=== PATIENT | male | born 1985 | race Caucasian/White ===

== ENCOUNTER 2022-07-21 13:24 | Inpatient (IN) | payer BC ==
[2022-07-21] MEDS ORDERED: NALOXONE HCL 2 MG/2 ML VIAL ONE (13:39)
[2022-07-21 13:45] LABS: Arterial Blood Carboxyhemoglob 0.8 % (0-1.5); Blood Gas Oxyhemoglobin 97.2 % (94-97); Blood O2 Saturation 99.5 % (92-98.5)
[2022-07-21 13:52] LABS: Absolute Lymphocytes (CBC) 1.6 K/uL (0.7-4.9); Hematocrit 41.4 % (39.6-49.0); Lymphocytes % 18.2 % (15.3-44.8); MCV 72.6 fL (80-100); MPV 7.7 fL (7.6-11.3); RBC Red Blood Cell Count 5.71 M/uL (4.33-5.43)
[2022-07-21 13:58] LABS: Protime INR 1.06
[2022-07-21 14:11] LABS: ALT/SGPT 39 U/L (16-61); AST/SGOT 17 U/L (15-37); Albumin 4.2 g/dL (3.4-5.0); Alkaline Phosphatase 100 U/L (45-117); BUN Blood Urea Nitrogen 13 mg/dL (7-18); Bicarbonate 23 mEq/L (21-32); Bilirubin Total 0.2 mg/dL (0.2-1.0); Glomerular Filtration Rate 125 ml/min (=/>90); Glucose Level 113 mg/dL (74-106); Magnesium 1.8 mg/dL (1.6-2.4); NT PRO-BNP 30 pg/mL (<125); Potassium 3.6 mEq/L (3.5-5.1); Protein, Total 8.2 g/dL (6.4-8.2); Sodium Level 139 mEq/L (136-145); Troponin High Sensitivity 3.9 pg/mL (<58.9)
[2022-07-21 14:14] LABS: Bilirubin Direct < 0.1 mg/dL (0-0.2); Bilirubin Indirect, Calculated ND mg/dL (0.2-0.8)
[2022-07-21] MEDS ORDERED: LEVETIRACETAM IV ONE (15:15)
[2022-07-21] MEDS ORDERED: NA CHLORIDE 0.9% IV ONE (15:15)
--- NOTE | 2022-07-21 15:19 | RAD REPORT ---
EXAM DESCRIPTION: CT - Head Brain W/Wo Con - 07/21/2022 2:49 pm CLINICAL HISTORY: Alteration of consciousness/confusion COMPARISON: none TECHNIQUE: Computed axial tomography of the head was obtained. Unenhanced and enhanced images obtain ed. 100 cc Isovue-[address] scans are performed using dose optimization technique as appropriate and may include automated exposure control or mA/KV adjustment according to patient size. FINDINGS: An intracranial bleed is not seen The ventricles are normal in caliber No extra-axial fluid collection is noted. No abnormal enhancement seen Fluid within the sinuses/ mastoids is not seen IMPRESSION: No acute intracranial abnormality is seen. If patient's symptoms persist MRI of the brain would be recommended
--- NOTE | 2022-07-21 15:23 | RAD REPORT ---
EXAM DESCRIPTION: CT - Chest For Pe Angio - 07/21/2022 2:48 pm CLINICAL HISTORY: Chest pain COMPARISON: None. TECHNIQUE: Dynamically enhanced axial 3 mm thick images of the chest were obtained during administra tion of 100 mL Isovue 370 IV contrast. Coronal and oblique reconstruction images were generated and r eviewed. Exam utilizes a protocol for optimal evaluation of pulmonary arterial tree. Maximum intensity projections 3D imaging was utilized All CT scans are performed using dose optimization technique as appropriate and may include automated exposure control or mA/KV adjustment according to patient size. FINDINGS: A pulmonary embolus is not seen. A thoracic aortic aneurysm is not noted. A pleural effusion is not seen. A pericardial effusion is not seen. Mild bilateral ground-glass opacities within the lungs Moderate compression deformity of a lower thoracic vertebral body probably is either chronic or conge nital IMPRESSION: Negative for a pulmonary embolism. Mild ground-glass opacities within the lungs indicative of a mild alveolitis
--- NOTE | 2022-07-21 15:27 | RAD REPORT ---
EXAM DESCRIPTION: Dimitris Single View07/21/2022 1:50 pm CLINICAL HISTORY: Chest pain COMPARISON: none FINDINGS: Poor degree of inspiration Mild bilateral pulmonary opacities Heart is borderline enlarged IMPRESSION: Mild bilateral pulmonary opacities may indicate mild pulmonary edema or pneumonitis
--- NOTE | 2022-07-21 15:27 | RAD REPORT ---
EXAM DESCRIPTION: CT - Abdomen Pelvis W Contrast - 07/21/2022 2:48 pm CLINICAL HISTORY: Abdominal pain COMPARISON: none. TECHNIQUE: Computed axial tomography of the abdomen pelvis was obtained. 100 cc Isovue-300 was admin istered intravenously. Oral contrast was not requested which limits evaluation of bowel and appendix All CT scans are performed using dose optimization technique as appropriate and may include automated exposure control or mA/KV adjustment according to patient size. FINDINGS: The liver, spleen, pancreas, adrenal and kidneys appear unremarkable. There is no evidence of diverticulitis. Multiple metallic foreign bodies pelvis Moderate scoliosis IMPRESSION: No acute abnormality is displayed.
[2022-07-21 16:20] LABS: Specific Gravity 1.021 (1.005-1.030); Urine Bilirubin NEGATIVE (Negative); Urine Blood Negative (Negative); Urine Clarity Clear (Clear); Urine Color Dark-Yellow (Yellow); Urine Glucose NEGATIVE (Negative); Urine Protein NEGATIVE (Negative); Urine Urobilinogen Normal (Normal)
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
[2022-07-21 16:39] LABS: Barbiturates NEGATIVE (NEGATIVE); Benzodiazepines POSITIVE (NEGATIVE); Cocaine NEGATIVE (NEGATIVE); METHAMPHETAM NEGATIVE (NEGATIVE); Methadone NEGATIVE (NEGATIVE); Opiates NEGATIVE (NEGATIVE); Phencyclidine NEGATIVE (NEGATIVE); THC Cannibis NEGATIVE (NEGATIVE)
[2022-07-21] MEDS ORDERED: HYDROCODONE/APAP 5/325 MG TAB PO PRN (18:32)
[2022-07-21] MEDS ORDERED: ACETAMINOPHEN 325 MG TABLET PO PRN (18:32)
[2022-07-21] MEDS ORDERED: ONDANSETRON 4 MG/2 ML VIAL IV PRN (18:38)
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
[2022-07-21] MEDS ORDERED: HYDRALAZINE HCL 20 MG/ML VIAL IV PRN (19:53)
[2022-07-21] MEDS ORDERED: ACETAMINOPHEN 500 MG TAB ONE (21:20)
[2022-07-21 23:52] LABS: Absolute Lymphocytes (CBC) 1.4 K/uL (0.7-4.9); Hematocrit 43.7 % (39.6-49.0); Lymphocytes % 13.9 % (15.3-44.8); MCV 72.5 fL (80-100); MPV 7.6 fL (7.6-11.3); RBC Red Blood Cell Count 6.03 M/uL (4.33-5.43)
[2022-07-22 00:08] LABS: Albumin 4.2 g/dL (3.4-5.0); Bilirubin Total 0.2 mg/dL (0.2-1.0); Magnesium 1.8 mg/dL (1.6-2.4); Phosphorus 2.2 mg/dL (2.5-4.9); Potassium 3.5 mEq/L (3.5-5.1); Protein, Total 8.4 g/dL (6.4-8.2); Thyroid Stimulating Hormone 1.33 uIU/mL (0.358-3.740)
[2022-07-22 04:33] VITALS: BMI 14.8
[2022-07-22] MEDS ORDERED: ENOXAPARIN 40 MG/0.4 ML SQ ONE (05:24)
--- NOTE | 2022-07-22 05:34 | EKG ---
Test Date: 2022-07-21 Test Time: 13:35:33 Loom Checker: HERIBERTO MEASUREMENT RESULTS: Intervals: Rate: 63 SC: 190 QRSD: 100 QT: 392 QTc: 401 [place]: P: 53 SC: 190 QRS: 61 T: 27 INTERPRETIVE STATEMENTS: Normal sinus rhythm Normal ECG No previous ECG available for comparison Electronically Signed On 07-22-22 05:33:24 CDT by Héctor Almaraz
[2022-07-22] MEDS: ENOXAPARIN 40 MG/0.4 ML SQ SCH ×2 (05:48→09:00)
[2022-07-22 05:57] LABS: Arterial Blood Carboxyhemoglob 0.7 % (0-1.5); Blood Gas Oxyhemoglobin 93.8 % (94-97); Blood O2 Saturation 95.8 % (92-98.5)
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
[2022-07-22] MEDS: ASPIRIN 81 MG CHEWABLE TABLET PO SCH (07:38)
[2022-07-22] MEDS ORDERED: ASPIRIN 81 MG CHEWABLE TABLET ONE (07:43)
[2022-07-22] MEDS ORDERED: ACETAMINOPHEN 325 MG TABLET ONE (07:43)
[2022-07-22] MEDS: AMLODIPINE 5 MG TAB PO SCH (09:00)
[2022-07-22 10:24] LABS: Hematocrit 43.8 % (39.6-49.0); Lymphocytes % 26.7 % (15.3-44.8); MCV 72.8 fL (80-100); MPV 7.3 fL (7.6-11.3); RBC Red Blood Cell Count 6.02 M/uL (4.33-5.43)
--- NOTE | 2022-07-22 10:35 | RAD REPORT ---
EXAM DESCRIPTION: CT - Soft Tissue Neck Wo Contr CLINICAL HISTORY: Severe hypoventilation COMPARISON: No comparisons TECHNIQUE: Thin axial CT images of the neck, performed without IV contrast. Multiplanar reformats w ere generated and reviewed. All CT scans are performed using dose optimization technique as appropriate and may include automated exposure control or mA/KV adjustment according to patient size. FINDINGS: Nasopharyngeal tissues are normal in appearance. Fossa Rosenmller are normal. Parapharyngeal fat triangles are symmetric. Tongue base structures are normal. Epiglottis and aryepiglottic folds are normal. Piriform sinuses are well aerated. Upper airway is patent throughout. The vocal cords are normal in appearance. No suspicious adenopathy. Salivary glands are normal in appearance. Small periapical collections along the bilateral maxillary molar root remnants. Upper lung biggs are clear. Included intracranial contents are unremarkable. IMPRESSION: No acute abnormality. No suspicious mucosal mass or adenopathy. Upper airway is patent. Small periapical collections concerning for abscesses along the bilateral maxillary molar root remnan ts.
[2022-07-22 10:38] LABS: Potassium 3.2 mEq/L (3.5-5.1)
--- NOTE | 2022-07-22 12:30 | EKG ---
Test Date: 2022-07-22 Test Time: 02:28:22 Transit Proof Machine Operator: ANGIE MEASUREMENT RESULTS: Intervals: Rate: 101 NC: 154 QRSD: 94 QT: 354 QTc: 459 [place]: P: NC: 154 QRS: 99 T: 142 INTERPRETIVE STATEMENTS: Sinus tachycardia Rightward axis ST & T wave abnormality, consider inferior ischemia Abnormal ECG Compared to ECG 07/21/2022 13:35:33 Right-axis deviation now present ST (T wave) deviation now present Possible ischemia now present Sinus rhythm no longer present Electronically Signed On 07-22-22 12:29:59 CDT by Héctor Almaraz
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
[2022-07-22] MEDS ORDERED: POTASSIUM 25 MEQ EFFERV TAB PO ONE (13:16)
[2022-07-22] MEDS: HYDROCODONE/APAP 7.5/325 MG TAB PO PRN ×2 (13:29→22:34)
[2022-07-22] MEDS: POTASS/SODIUM PHOSPHATE 1 PKT POWD.PACK PO SCH ×3 (13:29→15:38)
--- NOTE | 2022-07-22 18:37 | RAD REPORT ---
EXAM DESCRIPTION: MRI - Brain W/Wo Cont - 07/22/2022 6:00 pm CLINICAL HISTORY: Sleep apnea COMPARISON: head CT July 21, 2022 TECHNIQUE: Axial, sagittal, and coronal magnetic images of the brain were obtained. 20 cc MultiHance administered intravenously FINDINGS: Cerebral microbleed not seen No significant abnormal signal within the brain Pituitary gland normal size The ventricles are normal in caliber. Diffusion-weighted/ ADC mapping sequences do not demonstrate evidence of an acute infarction. No abnormal enhancement within the brain is seen. An extra-axial fluid collection is not noted. Fluid within the sinuses/mastoids is not seen IMPRESSION: No acute intracranial abnormality displayed
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
[2022-07-23 05:35] LABS: Absolute Lymphocytes (CBC) 2.9 K/uL (0.7-4.9); Hematocrit 41.2 % (39.6-49.0); Lymphocytes % 41.2 % (15.3-44.8); MCV 73.6 fL (80-100); MPV 7.3 fL (7.6-11.3)
[2022-07-23 05:45] VITALS: O2SAT 99
[2022-07-23 05:49] LABS: Magnesium 2.1 mg/dL (1.6-2.4); Phosphorus 4.5 mg/dL (2.5-4.9); Potassium 3.7 mEq/L (3.5-5.1)
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
--- NOTE | 2022-07-23 07:31 | ECHO ---
HEIGHT: 5 ft 5 in WEIGHT: 197 lb 0 oz DATE OF STUDY: 07/22/[address]: Héctor Almaraz MD 2-DIMENSIONAL: YES M.MODE: YES DOPPLER: YES COLOR FLOW: YES TDS: YES PORTABLE: YES DEFINITY: NO BUBBLE STUDY: NO DIAGNOSIS: CHEST PAIN CARDIAC HISTORY: CATHERIZATION: NO SURGERY: NO PROSTHETIC VALVE: NO PACEMAKER: NO MEASUREMENTS (cm) DIASTOLIC (NORMALS) SYSTOLIC (NORMALS) IVSd 1.0 (0.6-1.2) LA Diam 2.3 (1.9-4.0) LVEF 29% LVIDd 4.6 (3.5-5.7) LVIDs 4.0 (2.0-3.5) %FS 14% LVPWd 1.1 (0.6-1.2) Ao Diam 2.1 (2.0-3.7) 2 DIMENSIONAL ASSESSMENT: RIGHT ATRIUM: NORMAL LEFT ATRIUM: NORMAL RIGHT VENTRICLE: NORMAL LEFT VENTRICLE: NORMAL TRICUSPID VALVE: NORMAL MITRAL VALVE: NORMAL PULMONIC VALVE: NORMAL AORTIC VALVE: NORMAL PERICARDIAL EFFUSION: NONE AORTIC ROOT: NORMAL LEFT VENTRICULAR WALL MOTION: NORMAL DOPPLER/COLOR FLOW: NORMAL COMMENTS: 1. NORMAL 2D ECHOCARDIOGRAM WITH DOPPLER. 2. NO WALL MOTION ABNORMALITY. 3. NO EFFUSION. TECHNOLOGIST: Noemi BLUE
[2022-07-23] MEDS: ASPIRIN 81 MG CHEWABLE TABLET PO SCH (08:18)
[2022-07-23] MEDS: AMLODIPINE 5 MG TAB PO SCH (08:19)
[2022-07-23] MEDS: ENOXAPARIN 40 MG/0.4 ML SQ SCH (08:19)
[2022-07-23 08:20] VITALS: BP 96/60
[2022-07-23 08:59] VITALS: TEMP 98
[2022-07-23] MEDS ORDERED: [UNRECOGNIZED DRUG - OTHER] PO SCH (09:00)
[2022-07-23] MEDS ORDERED: AMPHETAMINE PO SCH (09:00)
[2022-07-23] MEDS ORDERED: DEXTROAMPHETAMINE PO SCH (09:00)
[2022-07-23] MEDS ORDERED: POTASSIUM CL SA 10 MEQ TAB PO ONE (09:00)
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
--- NOTE | 2022-07-23 16:02 | CON ---
Reason For Consultation: Syncope and chest pain, possible seizure disorder. History Of Present Illness: Patient echocardiogram that was done in hospital here was nor mal. His troponin is normal. His EKG is normal. BNP is normal. Chest x-ray is normal. Past Medical History: As stated above. Also include Allergies: NEGATIVE. Review of Systems: Negative. Social History: Negative. Family History: Noncontributory. Medications: Listed earlier. Physical Examination: Vital Signs: Stable. Blood pressure 159/106, NB/MODL Voice ID: [id number] Report ID: [id number]
== END 2022-07-23 08:45 | disposition left against medical advice (07) | DRG 189 ==
LOC: ER 13:24 → ERHOLD 18:30 → 3RD-ICU 07-22 10:22 → OBSVTOIN 07-22 12:21
PROVIDERS: ADMIT Hospitalist; ATTEND Hospitalist
PROC: 5A09357 Assistance with Respiratory Ventilation, Less than 24 Consecutive Hours, Continuous Positive Airway Pressure (ICD-10-PCS; principal; 2022-07-21)
DX: J96.01 Acute respiratory failure with hypoxia (principal); E87.3 Alkalosis; G47.37 Central sleep apnea in conditions classified elsewhere; I10 Essential (primary) hypertension; H91.8X2 Other specified hearing loss, left ear; M41.9 Scoliosis, unspecified; H57.12 Ocular pain, left eye; D50.9 Iron deficiency anemia, unspecified; G89.29 Other chronic pain; M54.9 Dorsalgia, unspecified; T41.45XA Adverse effect of unspecified anesthetic, initial encounter; R07.89 Other chest pain; R55 Syncope and collapse; R30.0 Dysuria; Z94.5 Skin transplant status; Z53.29 Procedure and treatment not carried out because of patient's decision for other reasons; Z79.899 Other long term (current) drug therapy; Z87.820 Personal history of traumatic brain injury; Z95.818 Presence of other cardiac implants and grafts
CPT/HCPCS: 36415; 70470; 70490; 70553; 71045; 71275; 74177; 80048; 80053; 80061; 80076; 80307; 81003; 82140; 82550; 82805; 83605; 83735; 83880; 84100; 84439; 84443; 84484; 85025; 85610; 87086; 87088; 93005; 93306; 94660; 94760; 96365; 96375; 99291; 99292; A9577; G0378; J1650; J1953; J2310; Q9967

== ENCOUNTER 2022-11-10 12:07 | Observation (INO) | payer OTHER ==
--- OUTSIDE RECORDS SUMMARY | 2022-11-10 12:12 | XMS REPORT | Continuity of Care Document ---
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 rohini ER 500 s t 500 mg 10:51: 00:00 mg [facility]osp[facility] capsule 39 :00 capsule,ex l tended release TAKE 1 CAPSULE BY MOUTH EVERY DAY DIRECTED acetaZOLAMI 2022- No acetazolam [facility] DE (DIAMOX) 07-15 rohini ER 500 s t 500 mg 10:51: 00:00 mg [facility]osp[facility] capsule 39 :00 capsule,ex l tended release TAKE 1 CAPSULE BY MOUTH EVERY DAY DIRECTED acetaZOLAMI 2022- No Take 2 [facility] DE (DIAMOX) 5-17 -[address] 250 MG 00:00: 00:00 STAT and 2 [facility] tablet 00 :00 tablets l 6-8 later. Repeat dose 6-8 later if pain persists. acetaZOLAMI 2022- No Take 2 [facility] DE (DIAMOX) 5-17 05-[address] 250 MG 00:00: 00:00 STAT and 2 [facility] tablet 00 :00 tablets l 6-8 later. Repeat dose 6-8 later if pain persists. famotidine Yes 40mg QD Take 1 [facility] (PEPCID) 40 5-13 tablet (40 st MG tablet 00:00: mg total) [facility] 00 by mouth l daily. famotidine 0 Yes 40mg QD Take 1 [facility] di (PEPCID) 40 5-13 tablet (40 st MG tablet 00:00: mg total) [facility] 00 by mouth l daily. brimonidine 2022- No brimonidin [facility] (ALPHAGAN) 06-30-03 e 0.2 % st 0.2 % 14:42: 00:00 eye drops Hospit [facility] ophthalmic 30 :00 INSTILL 1 l solution DROP IN BOTH EYES THREE TIMES DAILY brimonidine 2022- No brimonidin [facility] (ALPHAGAN) 06-30-03 e 0.2 % st 0.2 % 14:42: 00:00 eye drops [facility] ophthalmic 30 :00 INSTILL 1 l solution DROP IN BOTH EYES THREE TIMES DAILY oxyCODone 2022- No 10mg Q12H 1 tablet [facility] (OxyCONTIN) 06-30-03 ([address] 10 mg 14:42: 00:00 total) [facility]osp[facility] tablet,oral 23 :00 every 12 l only,ext.re (twelve) l.12 hr ER hours. tablet oxyCODone 2022- No 10mg Q12H 1 tablet [facility] (OxyCONTIN) 06-30-03 ([address] 10 mg 14:42: 00:00 total) [facility]osp[facility] tablet,oral 23 :00 every 12 l only,ext.re (twelve) l.12 hr ER hours. tablet sulfamethox 2022- No sulfametho [facility] azole-trime 06-29 xazole 800 s t thoprim 16:03: 00:00 mg-trimeth [facility] (BACTRIM 12 :00 oprim 160 l DS) 800-160 mg tablet mg per TK 1 T PO tablet Q 12 H FOR 10 DAYS UTD sulfamethox 2022- No sulfametho [facility] azole-trime 06-29 xazole 800 s t thoprim 16:03: 00:00 mg-trimeth [facility] (BACTRIM 12 :00 oprim 160 l DS) 800-160 mg tablet mg per TK 1 T PO tablet Q 12 H FOR 10 DAYS UTD moxifloxaci 2022- No moxifloxac [facility] (VIGAMOX) 06-29 in 0.5 % st 0.5 % 16:02: 00:00 eye drops [facility] ophthalmic 51 :00 INT 1 GTT l solution IN OS TID FOR 7 DAYS moxifloxaci 2022- No moxifloxac [facility] (VIGAMOX) 06-29 in 0.5 % st 0.5 % 16:02: 00:00 eye drops [facility] ophthalmic 51 :00 INT 1 GTT l solution IN OS TID FOR 7 DAYS doxycycline 2022- No doxycyclin [facility] (MONODOX) 06-29- e st 100 MG 16:02: 00:00 monohydrat [facility] capsule 19 :00 e 100 mg l capsule TAKE 1 CAPSULE BY MOUTH TWICE DAILY FOR 10 DAYS doxycycline 2022- No doxycyclin [facility] (MONODOX) 06-29- e st 100 MG 16:02: 00:00 monohydrat [facility] capsule 19 :00 e 100 mg l capsule TAKE 1 CAPSULE BY MOUTH TWICE DAILY FOR 10 DAYS dorzolamide 2022- No dorzolamid [facility] (TRUSOPT) 2 06-29- e 2 % eye st % 16:02: 00:00 drops [facility] ophthalmic 15 :00 INSTILL 1 l solution DROP IN LEFT EYE THREE TIMES DAILY DIRECTED dorzolamide 2022- No dorzolamid [facility] (TRUSOPT) 2 06-29- e 2 % eye st % 16:02: 00:00 drops [facility] ophthalmic 15 :00 INSTILL 1 l solution DROP IN LEFT EYE THREE TIMES DAILY DIRECTED cyclopentol 2022- No cyclopento [facility] ate 06-29- late 1 % st (CYCLOGYL) 16:02: 00:00 eye drops H [facility]spita 1 % 09 :00 PUT 1 DROP l ophthalmic LEFT EYE solution TWICE DAILY DIRECTED cyclopentol 2022- No cyclopento [facility] ate 06-29 late 1 % st (CYCLOGYL) 16:02: 00:00 eye drops H [facility] 1 % 09 :00 PUT 1 DROP l ophthalmic LEFT EYE solution TWICE DAILY DIRECTED cefTRIAXone 2022- No ceftriaxon [facility] (ROCEPHIN) 06-[address] 500 mg 16:01: 00:00 solution Hospit [facility] injection 57 :00 for l injection INJECT 500MG IN THE MUSCLE DIRECTED cefTRIAXone 2022- No ceftriaxon [facility] (ROCEPHIN) 06-[address] 500 mg 16:01: 00:00 solution [facility] a injection 57 :00 for l injection INJECT 500MG IN THE MUSCLE DIRECTED cephalexin 2022- No [id number] 500mg Q.5D Take 1 [facility] (KEFLEX) 06-[address] 500 MG 00:00: 04:59 (500 mg [facility]osp[facility] capsule 00 :00 total) by l mouth 2 (two) times a day for 3 days. Start the day before procedure. cephalexin 2022- No [id number] 500mg Q.5D Take 1 [facility] (KEFLEX) 06-[address] 500 MG 00:00: 04:59 (500 mg [facility] capsule 00 :00 total) by l mouth 2 (two) times a day for 3 days. Start the day before procedure. latanoprost 2022- No 1[drp] QD Administer [facility] (XALATAN) 06-[address] 0.005 % 00:00: 00:00 both eyes [facility] ophthal[facility] 00 :00 nightly. l solution latanoprost 2022- No 1[drp] QD Administer [facility] (XALATAN) 06-[address] 0.005 % 00:00: 00:00 both eyes [facility] ophthal[facility] 00 :00 nightly. l solution topiramate Yes 50mg QD Take 1 [facility] (TOPAMAX) 4-26 tablet (50 st 50 MG 00:00: mg total) [facility]osp[facility] tablet 00 by mouth l daily. topiramate 0 Yes 50mg QD Take 1 [facility] di (TOPAMAX) 4-26 tablet (50 st 50 MG 00:00: mg total) [facility]osp[facility] tablet 00 by mouth l daily. brimonidine 2022-0 Yes 1[drp] Q.[id number] Administer [facility] (ALPHAGAN) 4-20 [id number] 1 drop s t 0.2 % 00:00: 3D into the [facility]ospita ophthalmic 00 left eye 3 l solution (three) times a day. timolol 2022-0 Yes 1[drp] Q.5D Administer [facility] (TIMOPTIC) 4-[address] 0.5 % 00:00: into the [facility] ophthalmic 00 left eye 2 l solution (two) times a day. brimonidine 0 Yes 1[drp] Q.[id number] Administer [facility] (ALPHAGAN) 4-20 [id number] 1 drop s t 0.2 % 00:00: 3D into the [facility]osp[facility] ophthalmic 00 left eye 3 l solution (three) times a day. timolol 2022-0 Yes 1[drp] Q.5D Administer [facility] (TIMOPTIC) 4-[address] 0.5 % 00:00: into the [facility] ophthalmic 00 left eye 2 l solution (two) times a day. Suprep 2022- No See Admin [facility] Bowel Prep 06-[address] Kit 00:00: 00:00 ns. [facility]ospita 17.5-3.13-1 00 :00 l .6 gram recon soln Suprep 2022- No See Admin Metho di Bowel Prep 06-[address] Kit 00:00: 00:00 ns. [facility]ospita 17.5-3.13-1 00 :00 l .6 gram recon soln DULoxetine 2022- No 20mg Q.5D Take 1 Meth [facility] (CYMBALTA) 06-[address] 20 MG 00:00: 00:00 (20 mg [facility]osp[facility] capsule 00 :00 total) by l mouth 2 (two) times a day. naloxone 2022-2022- No 1{spray 1 spray by [facility] (NARCAN) 4 06-15 } Left Nare st mg/actuatio 00:00: 00:00 route once Hospita n 00 :00 as needed l spray,non-a for opioid erosol reversal. nasal spray DULoxetine 2022- No 20mg Q.5D Take 1 Meth [facility] (CYMBALTA) 06-[address] 20 MG 00:00: 00:00 (20 mg [facility] capsule 00 :00 total) by l mouth 2 (two) times a day. naloxone 2022- No 1{spray 1 spray by [facility] (NARCAN) 4 06-15 } Left Nare st mg/actuatio 00:00: 00:00 route once Hospita n 00 :00 as needed l spray,non-a for opioid erosol reversal. nasal spray pantoprazol 2022- No TAKE 1 [facility] e 4-17 05-[address] (PROTONIX) 00:00: 00:00 MOUTH Hospi ta 40 MG EC 00 :00 EVERY DAY l tablet 30 MINUTES BEFORE FIRST MEAL pantoprazol 2022-2022- No TAKE 1 [facility] e 4-17 05-[address] (PROTONIX) 00:00: 00:00 MOUTH Hos[facility] ta 40 MG EC 00 :00 EVERY DAY l tablet 30 MINUTES BEFORE FIRST MEAL phenazopyri 2022-0 Yes 200mg QD Take 1 [facility] dine 4-[address] (PYRIDIUM) 00:00: (200 mg [facility] 200 MG 00 total) by l tablet mouth daily. phenazopyri 2022-0 Yes 200mg QD Take 1 [facility] dine 4-[address] (PYRIDIUM) 00:00: (200 mg [facility] 200 MG 00 total) by l tablet mouth daily. HYDROcodone 2022-0 Yes 1{tbl} Q8H Take 1 [facility] -acetaminop 4-[address] hen (NORCO) 00:00: mouth Hospi ta 7.5-325 mg 00 every 8 l per tablet (eight) hours as needed for mild pain. HYDROcodone 2022-0 Yes 1{tbl} Q8H Take 1 [facility] -acetaminop 4-[address] hen (NORCO) 00:00: mouth Hospi ta 7.5-325 mg 00 every 8 l per tablet (eight) hours as needed for mild pain. topiramate 2022-0 2022- No 50mg Q.5D Take 2 Meth [facility] (TOPAMAX) 06-09-[address] 25 MG 00:00: 00:00 (50 mg [facility]osp[facility] tablet 00 :00 total) by l mouth 2 (two) times a day. topiramate 2022-0 3- No 50mg Q.5D Take 2 Meth [facility] (TOPAMAX) 06-09-[address] 25 MG 00:00: 00:00 (50 mg [facility]osp[facility] tablet 00 :00 total) by l mouth 2 (two) times a day. clindamycin 2022-0 2022- No 300mg Q.[id number] Take 1 [facility] (CLEOCIN) 06-09- [id number] capsule st 300 MG 00:00: 00:00 3D (300 mg [facility]osp[facility] capsule 00 :00 total) by l mouth 3 (three) times a day. clindamycin 2022-0 2022- No 300mg Q.[id number] Take 1 [facility] (CLEOCIN) 06-[id number] 300 MG 00:00: 00:00 3D (300 mg [facility] capsule 00 :00 total) by l mouth 3 (three) times a day. prednisoLON 2022-0 2022- No SHAKE [facility] E acetate 05-[address] (PRED 00:00: 00:00 INSTILL 1 Hospit a FORTE) 1 % 00 :00 DROP IN l ophthalmic LEFT EYE suspension FOUR TIMES DAILY prednisoLON 2022-0 2022- No SHAKE [facility] E acetate 05-[address] (PRED 00:00: 00:00 INSTILL 1 Hospit a FORTE) 1 % 00 :00 DROP IN l ophthalmic LEFT EYE suspension FOUR TIMES DAILY oxyCODONE 3-0 Yes 10mg Q12H 10 mg UT ER 3-27 every 12 Health (OxyCONTIN) 15:50: (twelve) 10 MG 12 hr 27 hours. Do tablet not crush, chew, or split. oxyCODONE 3-0 Yes 15mg Q12H 15 mg UT ER 3-27 every 12 Health (OxyCONTIN) 15:50: (twelve) 15 MG 12 hr 27 hours. Do tablet not crush, chew, or split. dorzolamide 3-0 Yes dorzolamid UT (Trusopt) 2 3-27 e 2 % eye [facility] % 15:50: drops ophthalmic 27 INSTILL 1 solution DROP IN LEFT EYE THREE TIMES DAILY DIRECTED meloxicam 2023-0 Yes 15mg QD Take 15 mg UT (Mobic) 15 3-27 by mouth 1 [facility] MG tablet 15:50: (one) time 27 each day. methocarbam 2023-0 Yes 750mg Q6H Take 750 U T ol 3-27 mg by Health (Robaxin) 15:50: mouth 750 MG 27 every 6 tablet (six) hours. metoprolol 3-0 Yes 25mg Q.5D Take 25 mg U T succinate 3-27 by mouth Health XL 15:50: in the (Toprol-XL) 27 morning 25 MG 24 hr and 25 mg tablet in the evening. amphetamine 3-0 Yes 30mg QD Take 30 mg UT -dextroamph 3-27 by mouth 1 He alth etamine 15:50: (one) time (Adderall) 27 each day. 30 MG tablet pregabalin 2022-0 Yes 100mg Q.5D Take 100 UT (Lyrica) 3-27 mg by Health 100 MG 15:50: mouth in capsule 27 the morning and 100 mg in the evening. prednisoLON 2022-0 Yes prednisolo UT E acetate 3-27 ne acetate [facility]al th (Pred-Forte 15:50: 1 % eye ) 1 % 27 drops,susp ophthalmic ension suspension SHAKE LIQUID AND INSTILL 1 DROP IN LEFT EYE EVERY 2 HOURS DIRECTED gabapentin 3-0 Yes 300mg Q.[id number] Take 300 UT (Neurontin) 3-27 [id number] mg by H ealth 300 MG 15:50: 3D mouth in capsule 27 the morning and 300 mg at noon and 300 mg in the evening. oxyCODONE 2023-0 Yes 10mg Q12H 10 mg UT ER 3-27 every 12 Health (OxyCONTIN) 15:50: (twelve) 10 MG 12 hr 27 hours. Do tablet not crush, chew, or split. oxyCODONE 2023-0 Yes 15mg Q12H 15 mg UT ER 3-27 every 12 Health (OxyCONTIN) 15:50: (twelve) 15 MG 12 hr 27 hours. Do tablet not crush, chew, or split. dorzolamide 2022-0 Yes dorzolamid UT (Trusopt) 2 3-27 e 2 % eye [facility] % 15:50: drops ophthalmic 27 INSTILL 1 solution DROP IN LEFT EYE THREE TIMES DAILY DIRECTED meloxicam 2022-0 Yes 15mg QD Take 15 mg UT (Mobic) 15 3-27 by mouth 1 [facility]a l[facility] MG tablet 15:50: (one) time 27 each day. methocarbam 2022-0 Yes 750mg Q6H Take 750 U T ol 3-27 mg by Health (Robaxin) 15:50: mouth 750 MG 27 every 6 tablet (six) hours. metoprolol 2022-0 Yes 25mg Q.5D Take 25 mg U T succinate 3-27 by mouth Health XL 15:50: in the (Toprol-XL) 27 morning 25 MG 24 hr and 25 mg tablet in the evening. amphetamine 2022-0 Yes 30mg QD Take 30 mg UT -dextroamph 3 by mouth 1 He alth etamine 15:50: (one) time (Adderall) 27 each day. 30 MG tablet pregabalin 2022-0 Yes 100mg Q.5D Take 100 UT (Lyrica) 3-27 mg by Health 100 MG 15:50: mouth in capsule 27 the morning and 100 mg in the evening. prednisoLON 2022-0 Yes prednisolo UT E acetate 3-27 ne acetate [facility]al th (Pred-Forte 15:50: 1 % eye ) 1 % 27 drops,susp ophthalmic ension suspension SHAKE LIQUID AND INSTILL 1 DROP IN LEFT EYE EVERY 2 HOURS DIRECTED gabapentin 2022-0 Yes 300mg Q.[id number] Take 300 UT (Neurontin) 3-27 [id number] mg by H ealth 300 MG 15:50: 3D mouth in capsule 27 the morning and 300 mg at noon and 300 mg in the evening. BinaxNOW 2022-0 2022- No TEST [facility] COVID-19 Ag 05-[address] Self Test 00:00: 00:00 TODAY Hospit a kit 00 :00 l BinaxNOW 2022-0 2022- No TEST [facility] di COVID-19 Ag 05-[address] Self Test 00:00: 00:00 TODAY Hospit a kit 00 :00 l methylpheni 2022-2022- No 40mg Take 1 [facility] date LA 05-[address] (RITALIN 00:00: 00:00 (40 mg Hospit a [place]) 40 MG 00 :00 total) by l 24 hr mouth. capsule methylpheni 0 2022- No 40mg Take 1 [facility] date [place] 05-[address] (RITALIN 00:00: 00:00 (40 mg Hospit a [place]) 40 MG 00 :00 total) by l 24 hr mouth. capsule levoFLOXaci 2022- No 500mg QD Take 1 [facility] n 05-21- tablet st (LEVAQUIN) 00:00: 00:00 (500 mg [facility] 500 MG 00 :00 total) by l tablet mouth daily. methylpheni 2022- No Metho di date LA 05-21 st (RITALIN 00:00: 00:00 Hospita [place]) 40 MG 00 :00 l 24 hr capsule levoFLOXaci 2022-0 2022- No 500mg QD Take 1 [facility] n 05-21- tablet st (LEVAQUIN) 00:00: 00:00 (500 mg [facility] 500 MG 00 :00 total) by l tablet mouth daily. methylpheni 2022- No Metho di date LA 05-21 st (RITALIN 00:00: 00:00 [facility]ospita [place]) 40 MG 00 :00 l 24 hr capsule cyclopentol 2022-0 Yes 1[drp] Q.5D Administer [facility] ate 3-[address] (CYCLOGYL) 00:00: into the [facility] 1 % 00 left eye 2 l ophthalmic (two) solution times a day. cyclopentol 2022-0 Yes 1[drp] Q.5D Administer [facility] ate 3-[address] (CYCLOGYL) 00:00: into the [facility] 1 % 00 left eye 2 l ophthalmic (two) solution times a day. traMADol 2022-0 202- No 50mg Q6H Take 50 mg UT (Ultram) 50 3-15 03-15 by mouth [facility]a l[facility] MG tablet 11:20: 00:00 every 6 46 :00 (six) hours. dorzolamide Yes 1[drp] Q.5D Administer [facility] (TRUSOPT) 2 3-[address] % 00:00: into the [facility]osp[facility] ophthalmic 00 left eye 2 l solution (two) times a day. traMADol 0 Yes [id number] 50mg Q6H Take 1 UT (Ultram) 50 3-15 tablet (50 He alth MG tablet 00:00: mg total) 00 by mouth every 6 (six) hours if needed for severe pain. traMADol 0 Yes [id number] 50mg Q6H Take 1 UT (Ultram) 50 3-15 tablet (50 He alth MG tablet 00:00: mg total) 00 by mouth every 6 (six) hours if needed for severe pain. traMADol 0 Yes [id number] 50mg Q6H Take 1 UT (Ultram) 50 3-15 tablet (50 He alth MG tablet 00:00: mg total) 00 by mouth every 6 (six) hours if needed for severe pain. traMADol Yes [id number] 50mg Q6H Take 1 UT (Ultram) 50 3-15 tablet (50 He alth MG tablet 00:00: mg total) 00 by mouth every 6 (six) hours if needed for severe pain. traMADol 0 Yes [id number] 50mg Q6H Take 1 UT (Ultram) 50 3-15 tablet (50 He alth MG tablet 00:00: mg total) 00 by mouth every 6 (six) hours if needed for severe pain. dorzolamide Yes 1[drp] Q.5D Administer [facility] (TRUSOPT) 2 3-[address] % 00:00: into the [facility] ophthalmic 00 left eye 2 l solution (two) times a day. acetaZOLAMI 2022- No 250mg QD Take 1 [facility] DE (DIAMOX) 05-[address] 250 MG 00:00: 00:00 (250 mg [facility]osp[facility] tablet 00 :00 total) by l mouth daily. naproxen 0 2022- No 500mg Q.5D Take 1 [facility] di (NAPROSYN) 05-[address] 500 MG 00:00: 00:00 (500 mg [facility]osp[facility] tablet 00 :00 total) by l mouth 2 (two) times a day as needed for mild pain. loratadine 2022- No 10mg QD Take 1 [facility] (CLARITIN) 05-09 tablet (10 st 10 mg 00:00: 00:00 mg total) Hospit a tablet 00 :00 by mouth l daily. acetaZOLAMI 2022- No 250mg QD Take 1 [facility] DE (DIAMOX) 05-[address] 250 MG 00:00: 00:00 (250 mg [facility]osp[facility] tablet 00 :00 total) by l mouth daily. naproxen 2022- No 500mg Q.5D Take 1 [facility] di (NAPROSYN) 05-[address] 500 MG 00:00: 00:00 (500 mg [facility]osp[facility] tablet 00 :00 total) by l mouth 2 (two) times a day as needed for mild pain. loratadine 2022- No 10mg QD Take 1 [facility] (CLARITIN) 05-09 tablet (10 st 10 mg 00:00: 00:00 mg total) Hospit [facility] tablet 00 :00 by mouth l daily. pregabalin 2022- No 50mg Q8H Take 1 Meth [facility] (LYRICA) 50 05-[address] MG capsule 00:00: 00:00 (50 mg [facility] 00 :00 total) by l mouth every 8 (eight) hours. pregabalin 2022-2022- No 50mg Q8H Take 1 Meth [facility] (LYRICA) 50 05-[address] MG capsule 00:00: 00:00 (50 mg [facility] 00 :00 total) by l mouth every 8 (eight) hours. ergocalcife 2022- No [id number] Q1W Take 1 M ethodi rol 05-[address] (VITAMIN 00:00: 00:00 (50,000 Hospi ta D2) 50,000 00 :00 Units l unit total) by capsule mouth every 7 days. FeroSuL 325 2022- No 1{tbl} QD Take 1 M ethodi mg (65 mg 3-12 05-[address] iron) 00:00: 00:00 (325 mg [facility]ospita tablet 00 :00 total) by l mouth daily. folic acid 2022- No 1mg QD Take 1 [facility] (FOLVITE) 1 05-09 tablet (1 st MG tablet 00:00: 00:00 mg total) Ho spita 00 :00 by mouth l daily. nortriptyli 2022-0 2022- No 10mg QD Take 1 Met [facility] ne 05-[address] (PAMELOR) 00:00: 00:00 (10 mg Hospi ta 10 MG 00 :00 total) by l capsule mouth nightly. ergocalcife 2022- No [id number] Q1W Take 1 M ethodi rol 05-[address] (VITAMIN 00:00: 00:00 (50,000 Hospi ta D2) 50,000 00 :00 Units l unit total) by capsule mouth every 7 days. FeroSuL 325 2022- No 1{tbl} QD Take 1 M ethodi mg (65 mg 05-[address] iron) 00:00: 00:00 (325 mg [facility]ospita tablet 00 :00 total) by l mouth daily. folic acid 2022- No 1mg QD Take 1 Meth [facility] (FOLVITE) 1 05-09 tablet (1 st MG tablet 00:00: 00:00 mg total) Ho spita 00 :00 by mouth l daily. nortriptyli 2022- No 10mg QD Take 1 [facility] ne 05-[address] (PAMELOR) 00:00: 00:00 (10 mg Hospi ta 10 MG 00 :00 total) by l capsule mouth nightly. latanoprost 2022-2022- No 1[drp] QD Administer [facility] (XALATAN) 05-[address] 0.005 % 00:00: 00:00 both eyes [facility] ophthalmic 00 :00 nightly. l solution latanoprost 2022-0 2022- No 1[drp] QD Administer [facility] (XALATAN) 05-[address] 0.005 % 00:00: 00:00 both eyes [facility] ophthalmic 00 :00 nightly. l solution dorzolamide 3-0 Yes dorzolamid UT (Trusopt) 2 3-06 e 2 % eye [facility] % 14:09: drops ophthalmic 45 INSTILL 1 solution DROP IN LEFT EYE THREE TIMES DAILY DIRECTED meloxicam 2023-0 Yes 15mg QD Take 15 mg UT (Mobic) 15 3-06 by mouth 1 [facility] MG tablet 14:09: (one) time 45 each day. methocarbam 2023-0 Yes 750mg Q6H Take 750 U T ol 3-06 mg by Health (Robaxin) 14:09: mouth 750 MG 45 every 6 tablet (six) hours. metoprolol 2023-0 Yes 25mg Q.5D Take 25 mg U T succinate 3-06 by mouth Health XL 14:09: in the (Toprol-XL) 45 morning 25 MG 24 hr and 25 mg tablet in the evening. traMADol 3-0 Yes 50mg Q6H Take 50 mg UT (Ultram) 50 3-06 by mouth [facility]al th MG tablet 14:09: every 6 45 (six) hours. amphetamine 2023-0 Yes 30mg QD Take 30 mg UT -dextroamph 3-06 by mouth 1 He alth etamine 14:09: (one) time (Adderall) 45 each day. 30 MG tablet pregabalin 3-0 Yes 100mg Q.5D Take 100 UT (Lyrica) 3-06 mg by Health 100 MG 14:09: mouth in capsule 45 the morning and 100 mg in the evening. prednisoLON 3-0 Yes prednisolo UT E acetate 3-06 ne acetate [facility]al [facility] (Pred-Forte 14:09: 1 % eye ) 1 % 45 drops,susp ophthalmic ension suspension SHAKE LIQUID AND INSTILL 1 DROP IN LEFT EYE EVERY 2 HOURS DIRECTED gabapentin 2023-0 Yes 300mg Q.[id number] Take 300 UT (Neurontin) 3-06 [id number] mg by H ealth 300 MG 14:09: 3D mouth in capsule 45 the morning and 300 mg at noon and 300 mg in the evening. oxyCODONE 3-0 Yes 10mg Q12H 10 mg UT ER 3-06 every 12 Health (OxyCONTIN) 14:09: (twelve) 10 MG 12 hr 45 hours. Do tablet not crush, chew, or split. oxyCODONE 2023-0 Yes 15mg Q12H 15 mg UT ER 3-06 every 12 [facility] (OxyCONTIN) 14:09: (twelve) 15 MG 12 hr 45 hours. Do tablet not crush, chew, or split. dorzolamide 2023-0 Yes dorzolamid UT (Trusopt) 2 3-06 e 2 % eye [facility] % 14:09: drops ophthalmic 45 INSTILL 1 solution DROP IN LEFT EYE THREE TIMES DAILY DIRECTED meloxicam 2023-0 Yes 15mg QD Take 15 mg UT (Mobic) 15 3-06 by mouth 1 [facility] l[facility] MG tablet 14:09: (one) time 45 each day. methocarbam 2023-0 Yes 750mg Q6H Take 750 U T ol 3-06 mg by Health (Robaxin) 14:09: mouth 750 MG 45 every 6 tablet (six) hours. metoprolol 2023-0 Yes 25mg Q.5D Take 25 mg U T succinate 3-06 by mouth Health XL 14:09: in the (Toprol-XL) 45 morning 25 MG 24 hr and 25 mg tablet in the evening. amphetamine 2023-0 Yes 30mg QD Take 30 mg UT -dextroamph 3-06 by mouth 1 He alth etamine 14:09: (one) time (Adderall) 45 each day. 30 MG tablet pregabalin 2023-0 Yes 100mg Q.5D Take 100 UT (Lyrica) 3-06 mg by Health 100 MG 14:09: mouth in capsule 45 the morning and 100 mg in the evening. prednisoLON 2023-0 Yes prednisolo UT E acetate 3-06 ne acetate [facility]al [facility] (Pred-Forte 14:09: 1 % eye ) 1 % 45 drops,susp ophthalmic ension suspension SHAKE LIQUID AND INSTILL 1 DROP IN LEFT EYE EVERY 2 HOURS DIRECTED gabapentin 2023-0 Yes 300mg Q.[id number] Take 300 UT (Neurontin) 3-06 [id number] mg by H ealth 300 MG 14:09: 3D mouth in capsule 45 the morning and 300 mg at noon and 300 mg in the evening. oxyCODONE 2023-0 Yes 10mg Q12H 10 mg UT ER 3-06 every 12 Health (OxyCONTIN) 14:09: (twelve) 10 MG 12 hr 45 hours. Do tablet not crush, chew, or split. oxyCODONE 2023-0 Yes 15mg Q12H 15 mg UT ER 3-06 every 12 Health (OxyCONTIN) 14:09: (twelve) 15 MG 12 hr 45 hours. Do tablet not crush, chew, or split. pregabalin 2023-0 Yes 100mg Q.5D Take 100 UT (Lyrica) 3-06 mg by Health 100 MG 13:20: mouth in capsule 05 the morning and 100 mg in the evening. prednisoLON 3-0 Yes prednisolo UT E acetate 3-06 ne acetate [facility]al [facility] (Pred-Forte 13:20: 1 % eye ) 1 % 05 drops,susp ophthalmic ension suspension SHAKE LIQUID AND INSTILL 1 DROP IN LEFT EYE EVERY 2 HOURS DIRECTED gabapentin 3-0 Yes 300mg Q.[id number] Take 300 UT (Neurontin) 3-06 [id number] mg by H ealth 300 MG 13:20: 3D mouth in capsule 05 the morning and 300 mg at noon and 300 mg in the evening. oxyCODONE 3-0 Yes 10mg Q12H 10 mg UT ER 3-06 every 12 Health (OxyCONTIN) 13:20: (twelve) 10 MG 12 hr 05 hours. Do tablet not crush, chew, or split. oxyCODONE 2023-0 Yes 15mg Q12H 15 mg UT ER 3-06 every 12 Health (OxyCONTIN) 13:20: (twelve) 15 MG 12 hr 05 hours. Do tablet not crush, chew, or split. dorzolamide 3-0 Yes dorzolamid UT (Trusopt) 2 3-06 e 2 % eye [facility] % 13:14: drops ophthalmic 55 INSTILL 1 solution DROP IN LEFT EYE THREE TIMES DAILY DIRECTED meloxicam 2023-0 Yes 15mg QD Take 15 mg UT (Mobic) 15 3-06 by mouth 1 [facility]a l[facility] MG tablet 13:14: (one) time 55 each day. methocarbam 2023-0 Yes 750mg Q6H Take 750 U T ol 3-06 mg by Health (Robaxin) 13:14: mouth 750 MG 55 every 6 tablet (six) hours. metoprolol 2023-0 Yes 25mg Q.5D Take 25 mg U T succinate 3-06 by mouth Health XL 13:14: in the (Toprol-XL) 55 morning 25 MG 24 hr and 25 mg tablet in the evening. traMADol 2022-0 Yes 50mg Q6H Take 50 mg UT (Ultram) 50 3-06 by mouth [facility]al th MG tablet 13:14: every 6 55 (six) hours. amphetamine 2022-0 Yes 30mg QD Take 30 mg UT -dextroamph 3-06 by mouth 1 [facility] alth etamine 13:14: (one) time (Adderall) 55 each day. 30 MG tablet meloxicam 2022-0 2023- No 15mg Take 1 Metho di (MOBIC) 15 03-25- tablet (15 st mg tablet 00:00: 00:00 mg total) [facility] sp[facility] 00 :00 by mouth. l with meals methocarbam 2022-0 2023- No [id number] Q6H Take 60 [facility] - 05-[address] (ROBAXIN) 00:00: 00:00 (45,000 mg H ospita 750 MG 00 :00 total) by l tablet mouth every 6 (six) hours as needed. meloxicam 2022-0 2022- No 15mg Take 1 Metho di (MOBIC) 15 03-25 05- tablet (15 st mg tablet 00:00: 00:00 mg total) [facility] sp[facility] 00 :00 by mouth. l with meals methocarbam 3-0 2023- No [id number] Q6H Take 60 [facility] 03-25 05-[address] (ROBAXIN) 00:00: 00:00 (45,000 mg H ospita 750 MG 00 :00 total) by l tablet mouth every 6 (six) hours as needed. diazePAM 2021-02 Yes 5mg QD Take 5 mg UT (Valium) 5 2-09 by mouth 1 [facility] MG tablet 00:00: (one) time 00 each day. diazePAM 2021- Yes 5mg QD Take 5 mg UT (Valium) 5 2-09 by mouth 1 [facility] MG tablet 00:00: (one) time 00 each day. diazePAM 2021- Yes 5mg QD Take 5 mg UT (Valium) 5 2-09 by mouth 1 [facility] MG tablet 00:00: (one) time 00 each day. diazePAM 2021-02 Yes 5mg QD Take 5 mg UT (Valium) 5 2-09 by mouth 1 [facility] MG tablet 00:00: (one) time 00 each day. diazePAM 2021-02 Yes 5mg QD Take 5 mg UT (Valium) 5 2-09 by mouth 1 [facility] MG tablet 00:00: (one) time 00 each day. diazePAM 2021-02 Yes 5mg QD Take 5 mg UT (Valium) 5 2-09 by mouth 1 [facility] MG tablet 00:00: (one) time 00 each day. diazePAM 2021-02 Yes 5mg QD Take 5 mg UT (Valium) 5 2-09 by mouth 1 Hea lth MG tablet 00:00: (one) time 00 each day. triamcinolo Yes triamcinol Methodi ne -[address] (KENALOG) 09:19: acetonide Hos codey 0.1 % cream 07 0.1 % l topical cream APPLY THIN LAYER EXTERNALLY TO THE AFFECTED AREA TWICE DAILY traMADoL Yes tramadol Metho di (ULTRAM) 50 - [address] mg tablet 09:19: tablet Hospit a 07 l sulfamethox Yes sulfametho Methodi azole-trime 06-[address] thoprim 09:19: mg-trimeth Hosp [facility]ann (BACTRIM 07 oprim 160 l DS) 800-160 mg tablet mg per TK 1 T PO tablet Q 12 H FOR 10 DAYS UTD moxifloxaci Yes moxifloxac Methodi n (VIGAMOX) 06-20 in 0.5 % st 0.5 % 09:19: eye drops Hospita ophthalmic 07 INT 1 GTT l solution IN OS TID FOR 7 DAYS metoprolol Yes metoprolol M ethodi succinate - succinate st XL 09:19: ER 25 mg Hospita (TOPROL-XL) 07 tablet,ext l 25 mg 24 hr ended tablet release 24 hr Take 1 tablet every day by oral route. methampheta Yes Method i mine 4-23 st (Desoxyn) 5 09:19: Hospit a mg tablet 07 l meclizine Yes meclizine Met hodi (ANTIVERT) 4-[address] 25 mg 09:19: tablet TK Hospita tablet 07 1 T PO TID l FOR 20 DAYS PRN fluticasone Yes fluticason Methodi propionate 4-[address] (FLONASE) 09:19: propionate Ho spita 50 07 50 l mcg/actuati mcg/actuat on nasal ion nasal spray spray,susp ension doxycycline Yes doxycyclin Methodi (MONODOX) - e st 100 MG 09:19: monohydrat Hospi ta capsule 07 e 100 mg l capsule TAKE 1 CAPSULE BY MOUTH TWICE DAILY FOR 10 DAYS cefTRIAXone Yes ceftriaxon Methodi (ROCEPHIN) - e [address] 500 mg 09:19: solution Hospita injection 07 for l injection INJECT 500MG IN THE MUSCLE DIRECTED bromfenac Yes bromfenac Met hodi (XIBROM) 23 0.09 % eye st 0.09 % 09:19: drops Hospita ophthalmic 07 INSTILL 1 l solution DROP IN THE LEFT EAR BID FOR 30 DAYS albuterol Yes albuterol Met hodi (PROAIR - sulfate st HFA) 90 09:19: HFA 90 Hospita mcg/actuati 07 mcg/actuat l on inhaler ion aerosol inhaler INHALE 2 PUFFS BY MOUTH EVERY 4 HOURS triamcinolo Yes triamcinol Methodi ne 4-[address] (KENALOG) 09:19: acetonide Hos codey 0.1 % cream 07 0.1 % l topical cream APPLY THIN LAYER EXTERNALLY TO THE AFFECTED AREA TWICE DAILY traMADoL Yes tramadol Metho di (ULTRAM) 50 -[address] mg tablet 09:19: tablet Hospit a 07 l sulfamethox Yes sulfametho Methodi azole-trime 06-[address] thoprim 09:19: mg-trimeth [facility]osp [facility] (BACTRIM 07 oprim 160 l DS) 800-160 mg tablet mg per TK 1 T PO tablet Q 12 H FOR 10 DAYS UTD moxifloxaci Yes moxifloxac Methodi n (VIGAMOX) 06-20 in 0.5 % st 0.5 % 09:19: eye drops Hospita ophthalmic 07 INT 1 GTT l solution IN OS TID FOR 7 DAYS metoprolol Yes metoprolol M ethodi succinate - succinate st XL 09:19: ER 25 mg Hospita (TOPROL-XL) 07 tablet,ext l 25 mg 24 hr ended tablet release 24 hr Take 1 tablet every day by oral route. methampheta Yes Method i mine 4- st (Desoxyn) 5 09:19: Hospit a mg tablet 07 l meclizine Yes meclizine Met hodi (ANTIVERT) 4-[address] 25 mg 09:19: tablet TK Hospita tablet 07 1 T PO TID l FOR 20 DAYS PRN fluticasone Yes fluticason Methodi propionate -[address] (FLONASE) 09:19: propionate Ho spita 50 07 50 l mcg/actuati mcg/actuat on nasal ion nasal spray spray,susp ension doxycycline Yes doxycyclin Methodi (MONODOX) - e st 100 MG 09:19: monohydrat Hospi ta capsule 07 e 100 mg l capsule TAKE 1 CAPSULE BY MOUTH TWICE DAILY FOR 10 DAYS cefTRIAXone Yes ceftriaxon Methodi (ROCEPHIN) - e [address] 500 mg 09:19: solution Hospita injection 07 for l injection INJECT 500MG IN THE MUSCLE DIRECTED bromfenac Yes bromfenac Met hodi (XIBROM) 4-23 0.09 % eye st 0.09 % 09:19: drops Hospita ophthalmic 07 INSTILL 1 l solution DROP IN THE LEFT EAR BID FOR 30 DAYS albuterol Yes albuterol Met hodi (PROAIR 4-[address] HFA) 90 09:19: HFA 90 Hospita mcg/actuati 07 mcg/actuat l on inhaler ion aerosol inhaler INHALE 2 PUFFS BY MOUTH EVERY 4 HOURS nebivoloL Yes 5mg QD Take 5 mg Met hodi (BYSTOLIC) 4-[address] 5 MG tablet 09:18: daily. [facility]osp [facility] 05 l diazePAM Yes 10mg Q6H Take 10 mg Met hodi (VALIUM) 5 -[address] MG tablet 09:18: every 6 Hospi ta 05 (six) l hours as needed for anxiety. nebivoloL Yes 5mg QD Take 5 mg Met hodi (BYSTOLIC) 4-[address] 5 MG tablet 09:18: daily. [facility]osp [facility] 05 l diazePAM Yes 10mg Q6H Take 10 mg Met hodi (VALIUM) 5 4-[address] MG tablet 09:18: every 6 Hospi ta 05 (six) l hours as needed for anxiety. loteprednol 2019-02 Yes 1[drp] Q.5D Administer Methodi etabonate 0-[address] (Lotemax 00:00: both eyes Hosp m[facility]ann SM) 0.38 % 00 2 (two) l drops,gel times a day. loteprednol 2019-02 Yes 1[drp] Q.5D Administer Methodi etabonate 0-[address] (Lotemax 00:00: both eyes Hosp m[facility]ann SM) 0.38 % 00 2 (two) l drops,gel times a day. loteprednol 2019-02- No 1[drp] Q.5D Administer Methodi etabonate 0-30 05-[address] (Lotemax 00:00: 00:00 both eyes Hos codey SM) 0.38 % 00 :00 2 (two) l drops,gel times a day. loteprednol 2019-02- No 1[drp] Q.5D Administer Methodi etabonate 0-30 05-[address] (Lotemax 00:00: 00:00 both eyes Hos codey SM) 0.38 % 00 :00 2 (two) l drops,gel times a day. dextroamphe 2018- Yes TK 1 T PO M ethodi tamine-amph 6-[address] etamine 00:00: FOR 30 Hospita (ADDERALL) 00 DAYS l 30 mg tablet dextroamphe 2018-0 Yes TK 1 T PO M ethodi tamine-amph 6-[address] etamine 00:00: FOR 30 Hospita (ADDERALL) 00 DAYS l 30 mg tablet dextroamphe 2018-2022- No TK 1 T PO Methodi tamine-amph 6-17 05-[address] etamine 00:00: 00:00 FOR 30 Hospita (ADDERALL) 00 :00 DAYS l 30 mg tablet dextroamphe 2022- No TK 1 T PO Methodi tamine-amph 08-[address] etamine 00:00: 00:00 FOR 30 Hospita (ADDERALL) 00 :00 DAYS l 30 mg tablet methampheta 2022- No Metho di mine 06-29 st (Desoxyn) 5 00:00: 00:00 Hospi ta mg tablet 00 :00 l methampheta 2022- No Metho di mine 06-29 st (Desoxyn) 5 00:00: 00:00 Hospi ta mg tablet 00 :00 l methylpheni methylpheni No methylphen Jania date LA 40 date LA 40 idate LA Orthope mg biphasic mg biphasic 40 mg dic 50-50 50-50 biphasic Sports capsule,ext capsule,ext 50-50 Medicin ended ended capsule,ex e release release tended release moxifloxaci moxifloxaci No moxifloxac Jania n 0.5 % eye n 0.5 % eye in 0.5 % Orthope drops drops eye drops dic INSTILL 1 INSTILL 1 INSTILL 1 Sports DROP IN DROP IN DROP IN Medici n LEFT EYE LEFT EYE LEFT EYE e FOUR TIMES FOUR TIMES FOUR TIMES DAILY DAILY DAILY DIRECTED DIRECTED DIRECTED prednisolon prednisolon No prednisolo Jania e acetate 1 e acetate 1 ne acetate Orthope % eye % eye 1 % eye dic drops,suspe drops,suspe drops,susp Sports nsion SHAKE nsion SHAKE ension Medicin LIQUID AND LIQUID AND SHAKE e INSTILL 1 INSTILL 1 LIQUID AND DROP IN DROP IN INSTILL 1 LEFT EYE LEFT EYE DROP IN EVERY 2 EVERY 2 LEFT EYE HOURS HOURS EVERY 2 DIRECTED DIRECTED HOURS DIRECTED timolol timolol No timolol Jania maleate 0.5 maleate 0.5 maleate Orthope % eye drops % eye drops 0.5 % eye dic INSTILL 1 INSTILL 1 drops Spor ts DROP IN DROP IN INSTILL 1 Medi shelly BOTH EYES BOTH EYES DROP IN e THREE TIMES THREE TIMES BOTH EYES DAILY DAILY THREE TIMES DAILY acetazolami acetazolami No acetazolam Jania de ER 500 de ER 500 rohini ER 500 Orthope mg mg mg dic capsule,ext capsule,ext capsule,ex Sports ended ended tended Medicin release release release e TAKE 1 TAKE 1 TAKE 1 CAPSULE BY CAPSULE BY CAPSULE BY MOUTH EVERY MOUTH EVERY MOUTH DAY DAY EVERY DAY DIRECTED DIRECTED DIRECTED amoxicillin amoxicillin No amoxicilli Jania [phone] [phone] Orthope mg-potassiu mg-potassiu mg-potassi dic m m um Sports clavulanate clavulanate clavulanat Medicin 125 mg 125 mg e 125 mg e tablet tablet tablet binaxnow binaxnow No binaxnow Aza cheryl cov kit cov kit cov kit Orthop e home oiana home ioana home ioana dic Sports Medicin e brimonidine brimonidine No brimonidin Jania 0.2 % eye 0.2 % eye e 0.2 % Or thope drops drops eye drops dic INSTILL 1 INSTILL 1 INSTILL 1 Sports DROP IN DROP IN DROP IN Medici n BOTH EYES BOTH EYES BOTH EYES e THREE TIMES THREE TIMES THREE DAILY DAILY TIMES DAILY celecoxib celecoxib No celecoxib Jania 200 mg 200 mg 200 mg Orthope capsule capsule capsule dic TAKE 1 TAKE 1 TAKE 1 Sports CAPSULE BY CAPSULE BY CAPSULE BY Medicin MOUTH DAILY MOUTH DAILY MOUTH e DAILY cyclopentol cyclopentol No cyclopento Jania ate 1 % eye ate 1 % eye late 1 % Orthope drops PUT 1 drops PUT 1 eye drops dic DROP LEFT DROP LEFT PUT 1 DROP Sports EYE TWICE EYE TWICE LEFT EYE M edicin DAILY DAILY TWICE e DIRECTED DIRECTED DAILY DIRECTED diazepam 5 diazepam 5 No diazepam 5 Jania mg tablet mg tablet mg tablet Orthope dic Sports Medicin e dorzolamide dorzolamide No dorzolamid Jania 2 % eye 2 % eye e 2 % eye Orth ope drops drops drops dic INSTILL 1 INSTILL 1 INSTILL 1 Sports DROP IN DROP IN DROP IN Medici n LEFT EYE LEFT EYE LEFT EYE e THREE TIMES THREE TIMES THREE DAILY DAILY TIMES DIRECTED DIRECTED DAILY DIRECTED flowflex flowflex No flowflex Aza cheryl kit test kit test kit test Ort hope dic Sports Medicin e Flowflex Flowflex No Flowflex Aza cheryl COVID-19 COVID-19 COVID-19 Ort hope Antigen Antigen Antigen dic Home Test Home Test Home Test Sports kit TEST kit TEST kit TEST Medicin DIRECTED DIRECTED e TODAY TODAY DIRECTED TODAY FreeStyle FreeStyle No FreeStyle Jania Laine 3 Laine 3 Laine 3 Orthop e Sensor Sensor Sensor dic device USE device USE device USE Sports TO CHECK TO CHECK TO CHECK Med icin BLOOD SUGAR BLOOD SUGAR BLOOD e THREE TIMES THREE TIMES SUGAR DAILY OR DAILY OR THREE MORE MORE TIMES NEEDED NEEDED DAILY OR MORE NEEDED meloxicam meloxicam No 1 Q1D meloxicam Jania 15 mg 15 mg 15 mg Orthope tablet Take tablet Take tablet dic 1 tablet 1 tablet Take 1 Sport s every day every day tablet Med icin by oral by oral every day e route with route with by oral meals. meals. route with meals. methocarbam methocarbam No 1 Q6H methocarba Jania ol 750 mg ol 750 mg mol 750 mg Orthope tablet Take tablet Take tablet dic 1 tablet 1 tablet Take 1 Sport s every 6 every 6 tablet Medicin hours by hours by every 6 e oral route oral route hours by as needed. as needed. oral route as needed. Vital Signs Vital Name Observation Time Observation Value Comments Source Systolic blood 2022-10-25 18:30:00 131 mm[Hg[facility] Diastolic blood 2022-10-25 18:30:00 69 mm[Hg] [facility] Heart rate 2022-10-25 18:30:00 93 /min [facility] temperature 2022-10-25 17:55:00 [facility].17 [place] [facility] Systolic blood 2022-10-04 19:43:00 163 mm[Hg] [facility] Diastolic blood 2022-10-04 19:43:00 68 mm[Hg] [facility] Heart rate 2022-10-04 19:43:00 76 /[facility] height 2022-10-04 19:43:00 175.3 cm [facility] Body weight 2022-10-04 19:43:00 92.534 kg [facility] BMI 2022-10-04 19:43:00 30.13 kg/m2 [facility] Height 2022-05-24 21:33:00 167.64 CM Weight 2022-05-24 21:32:00 86.18 KG Systolic blood 2022-05-24 20:48:00 136 mm[Hg] [facility] Diastolic blood 2022-05-24 20:48:00 82 mm[Hg] [facility] Heart rate 2022-05-24 20:48:00 96 /min [facility] temperature 2022-05-24 20:48:00 36.5 [place] [facility] Body height 2022-05-24 20:48:00 [facility].3 [facility] weight 2022-05-24 20:48:00 87.998 [facility] BMI 2022-05-24 20:48:00 28.65 kg/m2 [facility] Systolic blood 2022-05-03 20:08:00 118 mm[Hg] [facility] Diastolic blood 2022-05-03 20:08:00 72 mm[Hg] [facility] Heart rate 2022-05-03 20:08:00 88 /min [facility] temperature 2022-05-03 20:08:00 36.89 [place] [facility] Systolic blood 2022-05-03 19:03:00 117 mm[Hg] [facility] Diastolic blood 2022-05-03 19:03:00 64 mm[Hg] [facility] Heart rate 2022-05-03 19:03:00 84 /min [facility] Body temperature 2022-05-03 19:03:00 36.39 [place] [facility] Body height 2022-05-03 19:03:00 [facility].3 [facility] weight 2022-05-03 19:03:00 83.915 kg wheelchair [facility] BMI 2022-05-03 19:03:00 27.32 kg[facility]m2 [facility] Height 2022-03-25 00:00:00 69 [in_i] [facility] BMI (Body Mass 2022-03-25 00:00:00 27.2 kg/m2 Jania Orthopedic Index) Sports Medicine Body Weight 2022-03-25 00:00:00 184 [lb_av] [facility] Systolic blood 2022-09-27 18:54:00 126 mm[Hg] Method ist [facility] pressure Diastolic blood 2022-09-27 18:54:00 60 mm[Hg] [facility] pressure Heart rate 2022-09-27 18:54:00 73 /min [facility] Body temperature 2022-09-27 18:54:00 37.17 [place] [facility] Body height 2022-09-27 18:54:00 175.3 cm [facility] Body weight 2022-09-27 18:54:00 91.173 kg [facility] BMI 2022-09-27 18:54:00 29.68 kg/m2 [facility] Oxygen saturation 2022-09-27 18:54:00 99 /min [facility] in Arterial blood by Pulse oximetry Respiratory rate 2022-09-25 12:54:52 20 /min [facility] Procedures Procedure Date / Time Performing Clinician Source Performed MISCELLANEOUS REFERRAL 2022-09-27 16:51:00 Shine Barajas [facility] TEST [place] URINE DRUGS OF ABUSE 2022-09-25 15:51:00 Nilsa Reeder [facility] SCREEN BASIC METABOLIC PANEL 2022-09-25 09:38:00 Clark [facility] ESTIMATED GFR 2022-09-25 09:38:00 [facility] POC GLUCOSE 2022-09-25 04:15:[address] [facility] [address] CERVICAL SPINE WO 2022-09-24 23:29:37 Rip [facility] CONTRAST [place] CT HEAD WO CONTRAST 2022-09-24 23:24:47 Nilsa Reeder [facility] CT THORACIC SPINE WO 2022-09-24 16:01:18 [facility] CONTRAST CT LUMBAR SPINE WO 2022-09-24 16:00:55 [facility] CONTRAST CT CERVICAL SPINE WO 2022-09-24 16:00:37 [facility] CONTRAST BASIC METABOLIC PANEL 2022-09-24 10:11:00 [facility]FR 2022-09-24 10:11:00 [facility] CBC WITH PLATELET AND 2022-09-23 22:31:00 Jaclyn Land [facility] DIFFERENTIAL TTE COMPLETE, W CONTRAST, 2022-09-23 17:40:41 [facility] W DOPPLER ([id number]) QUANTIFERON-TB GOLD PLUS, 2022-09-23 12:36:00 [facility] 4 TUBE BASIC METABOLIC PANEL 2022-09-23 09:14:00 [facility] ESTIMATED GFR 2022-09-23 09:14:00 [facility] PHOSPHORUS LEVEL 2022-09-23 09:14:00 [facility] MAGNESIUM LEVEL 2022-09-23 09:14:00 [facility] ALBUMIN WITH CREATININE 2022-09-22 23:54:00 [facility] AND RATIO, RANDOM URINE XR CHEST 1 VW PORTABLE 2022-09-22 23:29:05 [facility] BASIC METABOLIC PANEL 2022-09-22 09:42:00 [facility] C-REACTIVE PROTEIN 2022-09-22 09:42:00 [facility] COPPER LEVEL, SERUM 2022-09-22 09:42:00 [facility] FOLATE LEVEL 2022-09-22 09:42:00 Oz [facility] spital HEMOGLOBIN A1C 2022-09-22 09:42:00 [facility] HOMOCYSTINE, PLASMA 2022-09-22 09:42:00 [facility] SEDIMENTATION RATE 2022-09-22 09:42:00 [facility] T4, FREE 2022-09-22 09:42:00 [facility] THYROID STIMULATING 2022-09-22 09:42:00 [facility] HORMONE VITAMIN B1 (THIAMINE) 2022-09-22 09:42:00 [facility]12 LEV[facility] 2022-09-22 09:42:00 [facility] VITAMIN B6 LEVEL, PLASMA 2022-09-22 09:42:00 [facility] VITAMIN D 25 HYDROXY 2022-09-22 09:42:00 [facility] LEVEL ZINC LEVEL, SERUM 2022-09-22 09:42:00 [facility] ESTIMATED GFR 2022-09-22 09:42:00 [facility] THYROID PEROXIDASE 2022-09-22 09:42:00 [facility] ANTIBODY THYROGLOBULIN ANTIBODY 2022-09-22 09:42:00 [facility] CT ORBITS W CONTRAST 2022-09-21 15:50:03 [facility] CT HEAD W WO CONTRAST 2022-09-21 15:49:47 [facility] CBC WITH PLATELET AND 2022-09-21 11:37:00 [facility] DIFFERENTIAL MISCELLANEOUS REFERRAL 2022-09-21 11:34:00 [facility] TEST [place] PROTHROMBIN TIME WITH INR 2022-09-21 08:12:00 [facility] PARTIAL THROMBOPLASTIN 2022-09-21 08:12:[address] [facility] [place] TIME (PTT) COMPREHENSIVE METABOLIC 2022-09-21 08:12:00 [facility] PANEL MAGNESIUM LEVEL 2022-09-21 08:12:00 [facility] spital SYPHILIS TREPONEMA SCREEN 2022-09-21 08:12:00 [facility] WITH RPR CONFIRMATION [place] (REVERSE ALGORITHM) B. BURGDORFERI BY PCR 2022-09-21 08:12:00 [facility] (LYME DISEASE) [place] BARTONELLA HENSELAE ABS, 2022-09-21 08:12:00 [facility] IGG & IGM [place] ANGIOTENSIN CONVERTING 2022-09-21 08:12:00 [facility] ENZYME [place] LYSOZYME, SERUM OR BODY 2022-09-21 08:12:00 Shine Barajas [facility] FLUID [place] VITAMIN B12 LEVEL 2022-09-21 08:12:00 Jenn [facility] [place] FOLATE LEVEL 2022-09-21 08:12:00 [facility] [place] METHYLMALONIC ACID, SERUM 2022-09-21 08:12:00 Shine Barajas [facility] [place] HOMOCYSTINE, PLASMA 2022-09-21 08:12:00 Jenn [facility] [place] THYROID STIMULATING 2022-09-21 08:12:00 Jenn [facility] HORMONE [place] THYROID STIMULATING 2022-09-21 08:12:00 Jenn [facility] IMMUNOGLOBULIN [place] T4, FREE 2022-09-21 08:12:00 [facility] [place] ESTIMATED GFR 2022-09-21 08:12:00 Malachi Colby joao HEAVY METALS PANEL 3, 2022-09-21 07:45:00 Dorothy Clark [facility] BLOOD B-SCAN ULTRASOUND - OS - 2022-09-20 21:32:22 Rosalind Cohn [facility] LEFT EYE Edwin OCT, OPTIC NERVE - OU - 2022-09-20 19:38:32 Shine Barajas [facility] BOTH EYES [place] AUTOMATED VISUAL FIELD, 2022-09-20 18:48:33 Jenn [facility] EXTENDED - OD - RIGHT EYE [place] TESTOSTERONE, TOTAL, 2022-09-08 08:34:00 Ned Woods [facility] IMMUNOASSAY (FOR ADULT MALES) ESTRADIOL LEVEL 2022-08-23 21:45:00 Roland Louis joao Marc LUTEINIZING HORMONE 2022-08-23 21:45:00 [facility] [place] FOLLICLE STIMULATING 2022-08-23 21:45:00 Roland Louis [facility] HORMONE [place] CBC WITH PLATELET AND 2022-08-23 21:45:00 Roland Louis [facility] DIFFERENTIAL [place] COMPREHENSIVE METABOLIC 2022-08-23 21:45:00 Roland Louis [facility] PANEL [place] PROSTATE SPECIFIC ANTIGEN 2022-08-23 21:45:00 Roland Louis [facility] [place] ESTIMATED GFR 2022-08-23 21:45:00 Roland Louis Ho spital [place] POC URINALYSIS DIPSTICK 2022-08-23 20:59:28 [facility] [place] XR LUMBAR SPINE AP 2022-08-19 22:26:37 [facility] LATERAL FLEXION AND EXTENSION XR SPINE SCOLIOSIS 2-3 2022-08-19 22:26:20 [facility] VIEWS POC GLUCOSE 2022-07-16 16:59:[address] [facility] Trevor EEG AWAKE/DROWSY LESS 2022-07-16 16:22:07 Mago Flynn [facility] THAN 41 MIN POC GLUCOSE 2022-07-16 13:59:[address] [facility] Trevor CBC WITH PLATELET AND 2022-07-16 09:06:00 Conner [facility] DIFFERENTIAL COMPREHENSIVE METABOLIC 2022-07-16 09:06:00 Conner [facility] PANEL MAGNESIUM LEVEL 2022-07-16 09:06:00 Conner [facility] spital PHOSPHORUS LEVEL 2022-07-16 09:06:00 Conner [facility] ospital ESTIMATED GFR 2022-07-16 09:06:[address] [facility] Trevor POC GLUCOSE 2022-07-16 03:37:[address] [facility] TTE COMPLETE, WO 2022-07-15 21:55:00 Conner [facility] ospital CONTRAST, W DOPPLER ([id number]) URINE CULTURE 2022-07-15 20:32:00 Mago Flynn [facility] CT CERVICAL SPINE WO 2022-07-15 19:24:08 Mago Flynn [facility] CONTRAST URINE DRUGS OF ABUSE 2022-07-15 18:06:00 Mago Flynn [facility] SCREEN URINALYSIS SCREEN AND 2022-07-15 18:06:00 Mago Flynn [facility] MICROSCOPY, WITH REFLEX TO CULTURE XR ABDOMEN 1 VW 2022-07-15 17:02:47 Mago Flynn Farrah [facility] XR SHOULDER 2+ VW LEFT 2022-07-15 17:01:39 [facility] Diannia TROPONIN T 2022-07-15 14:42:00 Eduard Galindo [facility] HEMOGLOBIN A1C 2022-07-15 14:42:00 Mago Flynn [facility] LIPID PANEL 2022-07-15 14:42[facility]00 [facility], [facility]ASMA 2022-07-15 14:42:00 Mago Flynn [facility] FOLATE LEVEL 2022-07-15 14:42:00 Gee [facility] VITAMIN B12 LEVEL 2022-07-15 14:42:00 Gee [facility] THYROID STIMULATING 2022-07-15 14:42:00 Mago Flynn [facility] HORMONE T4, FREE 2022-07-15 14:42:00 Gee [facility] SEDIMENTATION RATE 2022-07-15 14:42:00 Mago Flynn [facility] C-REACTIVE PROTEIN 2022-07-15 14:42:00 [facility] WITH INR 2022-07-15 14:42:00 Gee [facility] PARTIAL THROMBOPLASTIN 2022-07-15 14:42:00 Mago Flynn [facility] TIME (PTT) HIV 1/2 ANTIGEN/ANTIBODY, 2022-07-15 14:42:00 Gee [facility] FOURTH GENERATION, WITH REFLEXES SYPHILIS TREPONEMA SCREEN 2022-07-15 14:42:00 Gee [facility] WITH RPR CONFIRMATION (REVERSE ALGORITHM) ECG ED PRELIMINARY 2022-07-15 13:44:[address] [facility] INTERPRETATION Diannia CT ANGIOGRAM NECK W WO 2022-07-15 13:40:[address] [facility] CONTRAST CT ANGIOGRAM HEAD W WO 2022-07-15 13:40:[address] [facility] CONTRAST ECG 12-LEAD 2022-07-15 13:38:11 [facility] CBC WITH PLATELET AND 2022-07-15 13:24:00 [facility] DIFFERENTIAL PARTIAL THROMBOPLASTIN 2022-07-15 13:24:00 [facility] TIME (PTT) PROTHROMBIN TIME WITH INR 2022-07-15 13:24:00 [facility] COMPREHENSIVE METABOLIC 2022-07-15 13:24:00 [facility] PANEL TROPONIN T 2022-07-15 13:24:00 [facility] ESTIMATED GFR 2022-07-15 13:24:[address] [facility] [address] STROKE BRAIN WO 2022-07-15 13:09:57 [facility] CONTRAST VITRECTOMY 2022-07-14 13:05:00 Lalit Rosalind [facility] spital [place] CT SPINE EXTERNAL STUDY 2022-06-30 16:40:00 [facility] [place] P[facility] URINALYSIS DIPSTICK 2022-06-29 21:08:31 [facility] [id number] 2022-06-29 21:08:31 [facility] OCT, RETINA - OU - BOTH 2022-06-28 18:23:46 [facility] EYES Kennan OCT, OPTIC NERVE - OU - 2022-06-23 21:07:43 [facility] BOTH EYES Kennan OCT, RETINA - OU - BOTH 2022-06-23 21:07:36 [facility] EYES [place]ined[place] CT ABD/PELVIC EXTERNAL 2022-06-09 21:31:11 [facility] STUDY XR ABD/PELVIC EXTERNAL 2022-05-14 20:29[facility] [place] [facility] EXTERNAL STUDY 2022-05-14 20:13:00 [facility] [place] RADEX SPI LUMBOSAC 2022-03-25 00:00:00 Jania Or kirill MINIMUM 4 VIEWS Sports Medicine XR, thoracic spine, 2 2022-03-25 00:00:00 Jania [facility] MRI, lumbar spine, w/o 2022-03-25 00:00:00 Harris moreno [facility] contrast Sports Medicine SPECT, lumbar spine 2022-03-25 00:00:00 Jania Sterling rthopedic Sports Medicine Eye Surgery [facility]ia Orthoped[facility] Sports Medicine Plan of Care Planned Activity Planned Date Details Comments Source Future Scheduled 2022-11-09 [facility]-19 [facility]INE [facility] 09:08:59 (#1) [code = COVID-19 VACCINE (#1)] Future Scheduled 2022-11-09 [facility] 09[facility]08:59 screening (procedure) [code = 428360483] Future Scheduled 2022-11-09 [facility] 09:08:59 (#1) [code = INFLUENZA VACCINE (#1)] Future Scheduled 2022-11-06 COVID-19 VACCINE [facility] Test 23:38:26 (#1) [code = COVID-19 VACCINE (#1)] Future Scheduled 2022-11-06 [facility] 23:38:26 screening (procedure) [code = 102082648] Future Scheduled 2022-11-06 [facility] 23:38:26 (#1) [code = INFLUENZA VACCINE (#1)] Future Scheduled 2022-03-30 [facility]-19 [facility]INE [facility] 23:17:20 (#1) [code = COVID-19 VACCINE (#1)] Future Scheduled 2022-03-30 [facility] 23:17:20 screening (procedure) [code = 915412652] Future Scheduled 2022-03-30 [facility] 23:17:20 [code = INFLUENZA VACCINE] Future Scheduled 2022-03-30 [facility]INE [facility] 23:17:20 (#1) [code = COVID-19 VACCINE (#1)] Future Scheduled 2022-03-30 [facility] 23:17:20 screening (procedure) [code = 009280680] Future Scheduled 2022-03-30 [facility]ACCINE [facility] 23:17:20 [code = INFLUENZA VACCINE] Encounters Start End Encounter Admission Attending Care Care Encounter Source Date/Time Date/Time Type Type Clinicians Facility Department ID 2022-11-11 Inpatient EDWARD DEAL [facility] [id number] [place] 14:00:00 -[id number] [facility] 2022-09-22 Outpatient [facility] [id number] [place] 20:30:46 [id number] [facility] 2022-09-15 Outpatient [facility] [id number] [place] 01:28:23 [id number] [facility] 2022-09-14 Outpatient [facility] [id number] [place] 09:16:43 [id number] [facility] 2022-09-13 Outpatient [facility] [id number] [place] 16:26:14 [id number] [facility] 2022-07-22 Outpatient [facility] [id number] [place] 10:22:57 [id number] [facility] 2022-06-30 Outpatient [facility] [id number] [place] 09:13:13 [id number] [facility] 2022-06-24 Inpatient ADRIANNA UMAÑA [facility] [id number] [place] 14:00:00 ADA -[id number] [facility] 2022-05-24 Outpatient [facility] [id number] [place] 10:47:10 [id number] [facility] 2022-05-12 Outpatient [facility] [id number] [place] 13:20:48 [id number] [facility] 2022-05-11 Outpatient [facility] [id number] [place] 06:22:37 [id number] [facility] 2022-05-10 Outpatient [facility] [id number] [place] 15:09:56 [id number] [facility] 2022-05-03 Outpatient [facility] [id number] [place] 12:53:48 [id number] [facility] 2022-04-30 Outpatient [facility] [id number] [place] 07:42:19 [id number] [facility] 2022-04-28 Outpatient [facility] [id number] [place] 10:32:05 [id number] [facility] 2022-04-19 Outpatient [facility] [id number] [place] 13:21:28 [id number] [facility] 2022-04-18 Outpatient [facility] [id number] [place] 05:54:39 [id number] [facility] 2022-04-13 Outpatient [facility] [id number] [place] 05:18:54 [id number] [facility] 2022-04-04 Outpatient [facility] [id number] [place] 14:40:10 [id number] [facility] 2022-04-01 Outpatient [facility] [id number] [place] 18:23:52 [id number] [facility] 2022-11-13 2022-11-13 Outpatient LUZMARIA [facility] [id number] [place] 14:30:00 14:30:00 [facility] 2022-11-09 2022-11-09 Outpatient EDWARD DEAL [facility] [id number] [facility] 16:00:00 16:00:00 -[id number] [facility] 2022-11-02 2022-11-02 Telephone Holleyhu, 1.2.840.1 [id number] Methodi 15:15:00 15:30:00 Consult Ghazal 72896.1.[address] [place] 3.430.2.7 Hospit a .3.126151 l .8 2022-11-02 2022-11-02 Telephone Tru, 1.2.840.1 [id number] 21 [id number] Methodi 15:15:00 15:30:00 Consult Ghazal 07406.1.[address] [place] 3.430.2.7 Hospit a .3.001453 l .8 2022-10-29 2022-10-29 Emergency E ESTHER, [facility] [id number] [facility] 00:12:00 05:18:00 MARITZA 2022-10-25 2022-10-28 Inpatient E RALPH, [facility] [id number] [facility] 23:20:00 19:50:00 BALJINDER 2022-10-25 2022-10-25 Office JENNIFER [place] 6410 1.2.840.114 [id number] [place] 13:15:00 13:46:36 Visit Justin LONGORIA 350.1.13.58 [facility] 9.2.7.2.686 [id number] 2022-10-21 2022-10-21 Telephone Tru, 1.2.840.1 [id number] Methodi 10:45:00 11:00:00 Consult Ghazal 93152.1.[address] [place] 3.430.2.7 Hospit a .3.322307 l .8 2022-10-21 2022-10-21 Telephone Tru, 1.2.840.1 [id number] Methodi 10:45:00 11:00:00 Consult Ghazal 72747.1.[address] [place] 3.430.2.7 Hospit a .3.380556 l .8 2022-10-11 2022-10-11 Outpatient ANGELLA [facility] [id number] [place] 13:30:00 13:30:00 [facility] 2022-10-04 2022-10-04 Office Angella [facility] 6410 1.2.840.114 1 [id number] [place] 15:00:00 15:21:18 Visit Radha RICO 350.1.13.58 [facility] 9.2.7.2.686 [id number] 2022-09-30 2022-09-30 Outpatient ADRIANNA GALARZA [facility] [id number] [place] 12:39:00 12:39:00 GHAZAL [id number] [facility] 2022-09-27 2022-09-27 Office Tru, 1.2.840.1 [id number] 2100 [id number] Methodi 14:00:00 15:11:50 Visit Ghazal 13197.1.[address] [place] 3.430.2.7 Hospit a .3.700003 l .8 2022-09-27 2022-09-27 Office Tru, 1.2.840.1 [id number] 2100 [id number] Methodi 14:00:00 15:11:50 Visit Ghazal 29457.1.[address] [place] 3.430.2.7 Hospit a .3.242947 l .8 2022-09-27 2022-09-27 Lab Jenn, 1.2.840.1 [id number] 952 [id number] Methodi 11:35:00 11:40:[address] [place] 3.430.2.7 Hospit a .3.826351 l .8 2022-09-27 2022-09-27 Lab Jenn, 1.2.840.1 [id number] 762 [id number] Methodi 11:35:00 11:40:[address] [place] 3.430.2.7 Hospit a .3.325933 l .8 2022-09-27 2022-09-27 Office Jenn, 1.2.840.1 [id number] 531 [id number] Methodi 09:30:00 10:00:00 Visit Shine 61132.1.[address] [place] 3.430.2.7 Hospit a .3.154369 l .8 2022-09-27 2022-09-27 Office Jenn, 1.2.840.1 [id number] 636 [id number] Methodi 09:30:00 10:00:00 Visit Shine 28586.1.[address] [place] 3.430.2.7 Hospit a .3.967107 l .8 2022-09-20 2022-09-26 Office Jenn, 1.2.840.1 [id number] 609 [id number] Methodi 12:30:00 13:31:34 Visit Shine 50740.1.[address] [place] 3.430.2.7 Hospit a .3.796802 l .8 2022-09-20 2022-09-26 Office Jenn, 1.2.840.1 [id number] 470 [id number] Methodi 12:30:00 13:31:34 Visit Shine 79705.1.[address] [place] 3.430.2.7 Hospit a .3.714487 l .8 2022-09-20 2022-09-25 [facility] 1.2.840.1 1040 64447 [id number] Methodi 18:21:00 11:48:00 Encounter Dio Coleman 24525.1.[address] 3.430.2.7 Hospit a .3.290673 l .8 2022-09-20 2022-09-25 [facility] 1[facility].840[facility]1 1040 23514 [id number] Methodi 18:21:00 11:48:00 Encounter KingsMauricio peguerogala 30270.1.[address] 3.430.2.7 Hospit a .3.979281 l .8 2022-09-13 2022-09-13 Telephone Yun, 1.2.840.1 [id number] 2 [id number] Methodi 00:00:00 00:00:[address] Maria M 3.430.2.7 Hosp maryann .3.858871 l .8 2022-09-13 2022-09-13 Telephone Yun, 1.2.840.1 [id number] 2 [id number] Methodi 00:00:00 00:00:[address] Maria M 3.430.2.7 Hosp maryann .3.105171 l .8 2022-09-07 2022-09-[address] [facility], [facility] [id number] [facility] 12:[facility]00 12:02:00 ENTER -[id number] [facility] 2022-09-07 2022-09-07 Telephone Mucher, 1.2.840.1 [id number] 2100 [id number] Methodi 00:00:00 00:00:[address] [place] 3.430.2.7 Hospit a .3.935879 l .8 2022-09-07 2022-09-07 Telephone Mucher, 1.2.840.1 [id number] 2100 798850 Methodi 00:00:00 00:00:[address] [place] 3.430.2.7 Hospit a .3.908654 l .8 2022-09-03 2022-09-03 Telephone Teykl, 1.2.840.1 [id number] 2100 473344 Methodi 00:00:00 00:00:[address] Ned Rosas 42981.1.[address] 3.430.2.7 Hospit a .3.431614 l .8 2022-09-03 2022-09-03 Telephone Teykl, 1.2.840.1 [id number] 2100 435093 Methodi 00:00:00 00:00:[address].1.[address] 3.430.2.7 Hospit a .3.432171 l .8 2022-09-01 2022-09-01 Orders Teykl, 1.2.840.1 563282052 622745 0279 Methodi 00:00:00 00:00:00 Only Ned Rosas 68708.1.[address] 3.430.2.7 Hospit a .3.686131 l .8 2022-09-01 2022-09-01 Orders Teykl, 1.2.840.1 388243281 043674 3051 Methodi 00:00:00 00:00:00 Only Ned Rosas 53514.1.[address] 3.430.2.7 Hospit a .3.101721 l .8 2022-08-28 2022-08-28 Outpatient ARREGUIN, [facility] [id number] [facility] 17:05:00 17:05:00 ISSA [id number] [facility] 2022-08-23 2022-08-23 Lab Mucher, 1.2.840.1 [id number] [id number] 0989 Methodi 16:40:00 16:45:[address] [place] 3.430.2.7 Hospit a .3.403607 l .8 2022-08-23 2022-08-23 Lab Mucher, 1.2.840.1 711919732 147504 2891 Methodi 16:40:00 16:45:[address] [place] 3.430.2.7 Hospit a .3.563253 l .8 2022-08-23 2022-08-23 Procedure Mucher, 1.2.840.1 [id number] 2100 609558 Methodi 14:30:00 16:02:02 visit Roland 93996.1.[address] [place] 3.430.2.7 Hospit a .3.586069 l .8 2022-08-23 2022-08-23 Procedure Mucher, 1.2.840.1 [id number] 2099 332142 Methodi 14:30:00 16:02:02 visit Roland 87988.1.[address] [place] 3.430.2.7 Hospit a .3.610063 l .8 2022-08-23 2022-08-23 Telephone Mucher, 1.2.840.1 [id number] 496627 Methodi 00:00:00 00:00:[address] [place] 3.430.2.7 Hospit a .3.330372 l .8 2022-08-23 2022-08-23 Telephone Mucher, 1.2.840.1 [id number] 2099 898847 Methodi 00:00:00 00:00:[address] [place] 3.430.2.7 Hospit a .3.474634 l .8 2022-08-19 2022-08-19 [facility], 1.2.840.1 [id number] 21001 47667 Methodi 16:10:05 23:59:00 Encounter Gorge 81204.1.[address] [place] 3.430.2.7 Hospit a .3.580458 l .8 2022-08-19 2022-08-19 [facility], 1.2.840.1 [id number] 21001 13379 Methodi 16:10:05 23:59:00 Encounter Gorge 16593.1.[address] [place] 3.430.2.7 Hospit a .3.064879 l .8 2022-08-19 2022-08-19 [facility], 1.2.840.1 [id number] 21001 57540 Methodi 16:00:00 16:09:00 Encounter Gorge 82820.1.[address] [place] 3.430.2.7 Hospit a .3.189700 l .8 2022-08-19 2022-08-19 [facility], 1.2.840.1 [id number] 44711 Methodi 16:00:00 16:09:00 Encounter Gorge 29944.1.[address] [place] 3.430.2.7 Hospit a .3.015892 l .8 2022-08-19 2022-08-19 [facility] Vadim, 1.2.840.1 [id number] Methodi 00:00:00 00:00:00 Orders Gorge 92917.1.[address] [place] 3.430.2.7 Hospit a .3.574490 l .8 2022-08-19 2022-08-19 [facility] Vadim, 1.2.840.1 3161151742099674 Methodi 00:00:00 00:00:00 Orders Gorge 52870.1.[address] [place] 3.430.2.7 Hospit a .3.199894 l .8 2022-07-29 2022-07-29 Office Lalit, 1.2.840.1 [id number] 074576 0673 Methodi 14:00:00 14:30:00 Visit Rosalind 81587.1.[address] [place] 3.430.2.7 Hosp maryann .3.998651 l .8 2022-07-29 2022-07-29 Office Lalit, 1.2.840.1 846866454 928413 4435 Methodi 14:00:00 14:30:00 Visit Rosalind 74414.1.[address] [place] 3.430.2.7 Hosp maryann .3.610758 l .8 2022-07-27 2022-07-27 Telephone Missy, 1.2.840.1 [id number] 2099 223345 Methodi 00:00:00 00:00:[address] [place] 3.430.2.7 Hospit a .3.135263 l .8 2022-07-27 2022-07-27 Telephone Missy 1.2.840.1 [id number] 2099 572557 Methodi 00:00:00 00:00:[address] [place] 3.430.2.7 Hospit a .3.534081 l .8 2022-07-26 2022-07-26 Telephone Asaf Terry 1.2.840.1 [id number] [id number] Methodi 00:00:00 00:00:[address] 3.430.2.7 Hospit a .3.590853 l .8 2022-07-26 2022-07-26 Telephone Harrison Asaf 1.2.840.1 [id number] 21 [id number] Methodi 00:00:00 00:00:[address] 3.430.2.7 Hospit a .3.451360 l .8 2022-07-24 2022-07-24 Telephone Asaf Terry 1.2.840.1 513035506 [id number] Methodi 00:00:00 00:00:[address] 3.430.2.7 Hospit a .3.391315 l .8 2022-07-24 2022-07-24 Telephone Asaf Terry 1.2.840.1 [id number] 60445346 Methodi 00:00:00 00:00:[address] 3.430.2.7 Hospit a .3.634617 l .8 2022-07-15 2022-07-16 Emergency Elvianithin Eduard Johnson 1.2.840.1 1040 04993 [id number] Methodi 07:57:00 18:17:00 Cory Howell 19438.1.[address] 3.430.2.7 Hospit a .3.459860 l .8 2022-07-15 2022-07-16 Emergency Elvianithin Eduard Johnson 1.2.840.1 1040 42978 [id number] Methodi 07:57:00 18:17:00 Cory Howell [address]279.1.[address] 3.430.2.7 Hospit a .3.125706 l .8 2022-07-15 2022-07-15 [facility] Vladislav Cohn, 1.2.840.1 [id number] 755 [id number] Methodi 00:00:00 00:00:[address] [place] 3.430.2.7 Hosp maryann .3.897617 l .8 2022-07-15 2022-07-15 Telephone Paris Patel 1.2.840.1 [id number] 2 [id number] Methodi 00:00:00 00:00:[address] 3.430.2.7 Hospit a .3.196024 l .8 2022-07-15 2022-07-15 [facility] Lalit, 1.2.840.1 [id number] 258 [id number] Methodi 00:00:00 00:00:[address] [place] 3.430.2.7 Hosp maryann .3.528540 l .8 2022-07-15 2022-07-15 Telephone Paris Patel 1.2.840.1 [id number] 2 [id number] Methodi 00:00:00 00:00:[address] 3.430.2.7 Hospit a .3.240050 l .8 2022-07-14 2022-07-14 [facility], 1.2.840.1 [id number] 09798 66681 Methodi 06:14:00 11:31:00 Encounter Rosalind 54658.1.[address] [place] 3.430.2.7 Hosp maryann .3.423545 l .8 2022-07-14 2022-07-14 [facility], 1.2.840.1 [id number] 20840 Methodi 06:14:00 11:31:00 Encounter Carver 78061.1.[address] [place] 3.430.2.7 Hosp maryann .3.201811 l .8 2022-07-14 2022-07-14 Anesthesia Tracey 1.2.840.1 [id number] 297 [id number] Methodi 08:05:00 09:51:00 Event Vahidbettinaayde 11538.1.[address] [place]akel 3.430.2.7 Hospit a .3.474403 l .8 2022-07-14 2022-07-14 Anesthesia Tracey, 1.2.840.1 [id number] 054 1028888 Methodi 08:05:00 09:51:00 Event Brandy 80575.1.[address] Rhakel 3.430.2.7 Hospit a .3.495177 l .8 2022-07-14 2022-07-14 Surgery Lalit, 1.2.840.1 [id number] 158635 2978 Methodi 08:00:00 09:00:[address] [place] 3.430.2.7 Hosp maryann .3.420047 l .8 2022-07-14 2022-07-14 Surgery Lalit, 1.2.840.1 122874697 185473 3782 Methodi 08:00:00 09:00:[address] [place] 3.430.2.7 Hosp maryann .3.361407 l .8 2022-07-14 2022-07-14 Documentat Rodas 1.2.840.1 [id number] 324 [id number] Methodi 00:00:00 00:00:00 ion Hernandez, 69224.1.[address] Ashley 3.430.2.7 Hospit a Elizabeth .3.954599 l .8 2022-07-14 2022-07-14 Orders Rodas 1.2.840.1 597969147 313623 5216 Methodi 00:00:00 00:00:00 Only Hernandez, 82779.1.[address] [place] 3.430.2.7 Hospit a Elizabeth .3.287816 l .8 2022-07-14 2022-07-14 Travel 1.2.840.1 1.2.791.110 4045 948376 Methodi 00:00:00 00:00:[address] 3.430.2.7 0.2.7.3.698 Ho spita .3.335397 084.8 l .8 2022-07-14 2022-07-14 Documentat Rodas 1.2.840.1 810314408 504 [id number] Methodi 00:00:00 00:00:00 ion Hernandez, 75457.1.[address] [place] 3.430.2.7 Hospit a Elizabeth .3.367155 l .8 2022-07-14 2022-07-14 Orders Rodas 1.2.840.1 091401716 534793 1245 Methodi 00:00:00 00:00:00 Only Hernandez, 22508.1.[address] [place] 3.430.2.7 Hospit a Elizabeth .3.511979 l .8 2022-07-14 2022-07-14 Travel 1.2.840.1 1.2.022.014 2210 307150 Methodi 00:00:00 00:00:[address] 3.430.2.7 0.2.7.3.698 Ho spita .3.753202 084.8 l .8 2022-07-13 2022-07-13 Telephone Lalit, 1.2.840.1 [id number] 2100 619132 Methodi 00:00:00 00:00:[address] [place] 3.430.2.7 Hosp maryann .3.328940 l .8 2022-07-13 2022-07-13 Telephone Lalit, 1.2.840.1 358502576 2100 043122 Methodi 00:00:00 00:00:[address] [place] 3.430.2.7 Hosp maryann .3.090039 l .8 2022-07-12 2022-07-12 Outpatient ADRIANNA UMAÑA, [facility] [id number] [place] 11:14:00 11:14:00 FELICITA -[id number] [facility] 2022-07-08 2022-07-08 Outpatient ADRIANNA WOODS, [facility] [id number] [place] 11:18:00 11:18:00 NED -[id number] [facility] 2022-07-08 2022-07-08 Telephone Dorothy 1.2.840.1 [id number] 2100 [id number] Methodi 00:00:00 00:00:[address] 3.430.2.7 Hospit a .3.424566 l .8 2022-07-08 2022-07-08 [facility] 1.2.840.1 [id number] 2100 127626 Methodi 00:00:00 00:00:[address] 3.430.2.7 Hospit a .3.533132 l .8 2022-07-06 2022-07-06 Outpatient TRUE, [facility] [id number] [facility] 15:56:00 15:56:00 [id number] [facility] 2022-07-05 2022-07-05 [facility] 148 [id number] [place] 15:00:00 15:00:00 [facility] 2022-06-30 2022-06-30 [facility] 1.2.840.1 [id number] 027 [id number] Methodi 12:30:00 13:39:56 Visit Chata 80514.1.[address] 3.430.2.7 Hospit a .3.284770 l .8 2022-06-30 2022-06-30 [facility] 1.2.840.1 [id number] 730 [id number] Methodi 12:30:00 13:39:56 Visit Chata 93209.1.[address] 3.430.2.7 Hospit a .3.992077 l .8 2022-06-29 2022-06-29 [facility] 1.2.840.1 [id number] 62254 73934 Methodi 14:30:38 23:59:[address] 3.430.2.7 Hospit a .3.032593 l .8 2022-06-29 2022-06-29 [facility] 1.2.840.1 [id number] 16472 06971 Methodi 14:30:38 23:59:[address] 3.430.2.7 Hospit a .3.389534 l .8 2022-06-29 2022-06-29 Office Teykl, 1.2.840.1 810787470 791172 5034 Methodi 13:45:00 14:41:57 Visit Ned Rosas 43279.1.[address] 3.430.2.7 Hospit a .3.606026 l .8 2022-06-29 2022-06-29 Office Teykl, 1.2.840.1 716104466 405360 2604 Methodi 13:45:00 14:41:57 Visit Ned Rosas 62830.1.[address] 3.430.2.7 Hospit a .3.153686 l .8 2022-06-29 2022-06-29 Orders Teykl, 1.2.840.1 606753833 974588 3035 Methodi 00:00:00 00:00:00 Only Ned Rosas 44863.1.[address] 3.430.2.7 Hospit a .3.650527 l .8 2022-06-29 2022-06-29 Travel 1.2.840.1 1.2.628.333 6357 333682 Methodi 00:00:00 00:00:[address] 3.430.2.7 0.2.7.3.698 Ho spita .3.024591 084.8 l .8 2022-06-29 2022-06-29 Telephone Lalit, 1.2.840.1 [id number] 2099 067844 Methodi 00:00:00 00:00:[address] [place] 3.430.2.7 Hosp maryann .3.808113 l .8 2022-06-29 2022-06-29 Orders Teykl, 1.2.840.1 560857161 239888 0042 Methodi 00:00:00 00:00:00 Only Ned Rosas 72209.1.[address] 3.430.2.7 Hospit a .3.919914 l .8 2022-06-29 2022-06-29 Travel 1.2.840.1 1.2.461.977 8328 601863 Methodi 00:00:00 00:00:[address] 3.430.2.7 0.2.7.3.698 Ho spita .3.441883 084.8 l .8 2022-06-29 2022-06-29 Telephone Lalit, 1.2.840.1 [id number] 2099 446005 Methodi 00:00:00 00:00:[address] [place] 3.430.2.7 Hosp maryann .3.735669 l .8 2022-06-28 2022-06-28 Office Lalit, 1.2.840.1 821344681 630658 0400 Methodi 12:45:00 14:05:48 Visit Rosalind 10333.1.[address] [place] 3.430.2.7 Hosp maryann .3.415190 l .8 2022-06-28 2022-06-28 Office Lalit, 1.2.840.1 [id number] 630968 8691 Methodi 12:45:00 14:05:48 Visit Rosalind 77248.1.[address] [place] 3.430.2.7 Hosp maryann .3.975663 l .8 2022-06-28 2022-06-28 Travel 1.2.840.1 1.2.808.116 7942 698346 Methodi 00:00:00 00:00:[address] 3.430.2.7 0.2.7.3.698 Ho spita .3.020942 084.8 l .8 2022-06-28 2022-06-28 Travel 1.2.840.1 1.2.116.324 4614 733743 Methodi 00:00:00 00:00:[address] 3.430.2.7 0.2.7.3.698 Ho spita .3.209742 084.8 l .8 2022-06-24 2022-06-24 Telephone Jenn, 1.2.840.1 [id number] 2 [id number] Methodi 00:00:00 00:00:[address] [place] 3.430.2.7 Hospit a .3.873673 l .8 2022-06-24 2022-06-24 Telephone Lalit, 1.2.840.1 [id number] 2100 084334 Methodi 00:00:00 00:00:[address] [place] 3.430.2.7 Hosp maryann .3.825028 l .8 2022-06-24 2022-06-24 Telephone Jenn, 1.2.840.1 [id number] 2 [id number] Methodi 00:00:00 00:00:[address] [place] 3.430.2.7 Hospit a .3.055397 l .8 2022-06-24 2022-06-24 Telephone Lalit, 1.2.840.1 [id number] 2100 363690 Methodi 00:00:00 00:00:[address] [place] 3.430.2.7 Hosp maryann .3.582014 l .8 2022-06-23 2022-06-23 Office Lalit, 1.2.840.1 [id number] 175349 2589 Methodi 15:00:00 15:15:00 Visit Rosalidn 59086.1.[address] [place] 3.430.2.7 Hosp maryann .3.376804 l .8 2022-06-23 2022-06-23 Office Lalit, 1.2.840.1 [id number] 613651 0072 Methodi 15:00:00 15:15:00 Visit Rosalind 22357.1.[address] [place] 3.430.2.7 Hosp maryann .3.120577 l .8 2022-06-23 2022-06-23 Outpatient [facility] [id number] [place] 10:00:00 10:00:00 [facility] 2022-06-23 2022-06-23 Outpatient [facility] [id number] [place] 10:00:00 10:00:00 [facility] 2022-06-22 2022-06-22 Outpatient ADRIANNA ELDER [facility] [id number] [place] 11:12:00 11:12:00 [id number] [facility] 2022-06-21 2022-06-21 Travel 1.2.840.1 1.2.548.909 0327 980519 Methodi 00:00:00 00:00:[address] 3.430.2.7 0.2.7.3.698 Ho spita .3.907648 084.8 l .8 2022-06-21 2022-06-21 Travel 1.2.840.1 1.2.873.860 0387 086837 Methodi 00:00:00 00:00:[address] 3.430.2.7 0.2.7.3.698 Ho spita .3.105020 084.8 l .8 2022-06-17 2022-06-17 Outpatient ABHISHEK ELDER [facility] [id number] [place] 10:50:00 10:50:00 [id number] [facility] 2022-06-17 2022-06-17 Outpatient FOG_A_Provi AOSM AO 648 4040-20 Jania 00:00:00 00:00:00 liza [id number] [facility] 2022-06-12 2022-06-12 Outpatient FOG_A_Provi AOSM AO 648 4040-20 Jania 00:00:00 00:00:00 liza 110850 [facility] 2022-05-25 2022-05-25 Office JENNIFER Perales 6410 1.2.840.114 1 [id number] [place] 11:30:00 12:08:[address] 350.1.13.58 Health 9.2.7.2.686 [id number] 5 2022-05-24 2022-05-25 Emergency E PESCO, [facility] [id number] [place] 19:50:00 00:38:00 [facility] [place] 2022-05-24 2022-05-24 Office Sukhjinder Armijo UTP 6410 1.2.227.378 6733 [address]93 [place] 14:00:00 14:00:[address] 350.1.13.58 Health [facility] 9.2.7.2.686 [id number] 4 2022-05-17 2022-05-17 Outpatient [facility] [id number] [place] 13:00:00 13:00:00 Health 2022-05-14 2022-05-14 Outpatient FOG_A_Provi AOSM AO 648 4040-20 [place] 00:00:00 00:00:00 liza [id number] [facility] 2022-05-12 2022-05-12 Office JENNIFER Dooley 6414 1.2.840.114 14 [id number] [place] 10:00:00 11:38:[address] 350.1.13.58 Health 9.2.7.2.686 [id number] 1 2022-05-12 2022-05-12 Outpatient [facility] [id number] [place] 10:00:00 10:00:00 Health 2022-05-08 2022-05-08 Outpatient FOG_A_Provi AOSM AO 648 4040-20 [place] 00:00:00 00:00:00 liza [id number] [facility] 2022-05-03 2022-05-03 Office JENNIFER Perales 6410 1.2.840.114 1 [id number] [place] 14:15:00 14:57:[address] 350.1.13.58 Health 9.2.7.2.686 291.2704652 5 2022-05-03 2022-05-03 Office JENNIFER Bradford 6410 1.2.840.114 [id number] [place] 13:00:00 13:43:[address] 350.1.13.58 Health 9.2.7.2.686 052.0577007 4 2022-04-14 2022-04-14 Outpatient ANGELLA [facility] [id number] [place] 07:45:00 07:45:00 [facility] 2022-04-12 2022-04-12 Outpatient ANGELLA, [facility] [id number] [place] 07:45:00 07:45:00 [facility] 2022-04-09 2022-04-09 Outpatient ANTONIO, [facility] [id number] [place] 10:00:00 10:00:00 [facility] 2022-04-07 2022-04-07 Outpatient ALMA DELIA, [facility] [id number] [place] 07:30:00 07:30:00 [facility] 2022-04-04 2022-04-04 Outpatient PUEUGENIAO, [facility] [id number] [place] 08:00:00 08:00:00 [facility] 2022-04-03 2022-04-03 Outpatient FOG_A_Provi AOSM AOSM 648 4040-20 Jania 00:00:00 00:00:00 liza [id number] [facility] 2022-04-02 2022-04-02 Outpatient VANESSA, [facility] [id number] [place] 07:45:00 07:45:00 [facility] 2022-04-01 2022-04-01 Outpatient PUEUGENIAO, [facility] [id number] [place] 08:45:00 08:[facility]:00 [facility] 2022-03-31 2022-03-31 Outpatient NUVIA FREED [id number] [place] 10:15:00 10:15:00 JENIFER Meza ld 2022-03-31 2022-03-31 Outpatient VANESSA, [facility] [id number] [place] 09:00:00 09:00:00 [facility] 2022-03-30 2022-03-31 Emergency ER DIANA, [facility] D000 [id number] [place] 23:15:00 00:45:00 CORINNA -[id number] [facility] 2022-03-25 2022-03-25 Outpatient FOG_A_Provi AOSM AOSM [id number] Jania 00:00:00 00:00:00 liza [id number] [facility] 2022-03-25 2022-03-25 Alessio Perez AOSM [place] - Ortho [id number] Jania 00:00:00 00:00:00 Janae London MD: [id number] FOG_Ofc dic [facility] Spo [facility], [place] [phone] , Ph. [phone] 2022-03-24 2022-03-24 Outpatient FOG_A_Provi AOSM AOSM [id number] Jania 00:00:00 00:00:00 liza [id number] [facility] 2022-03-22 2022-03-22 Outpatient FOG_A_Provi AOSM AOSM [id number] Jania 00:00:00 00:00:00 liza [id number] [facility] 2022-03-22 2022-03-22 Outpatient FOG_A_Provi AOSM AOSM [id number] Jania 00:00:00 00:00:00 liza [id number] [facility] 2022-02-15 2022-02-15 Outpatient ADRIANNA NAVARRETE, [facility] D000 [id number] [place] 15:15:00 15:15:00 GREG [id number] [facility] 2022-02-08 2022-02-08 Telephone Zackary, 1.2.840.1 [id number] [facility] 00:00:00 00:00:00 Noor Sandovalnan 05331.1.1 358 s t [place] 3.430.2.7 Hospit a .3.984617 l .8 2022-02-08 2022-02-08 Telephone Ghazal Lynn 1.2.840.1 [id number] [facility] 00:00:00 00:00:[address] 3.430.2.7 Hospit a .3.624058 l .8 2022-02-08 2022-02-08 Telephone Zackary, 1.2.840.1 [id number] [facility] 00:00:00 00:00:00 Noor Adnan 87531.1.1 358 s t [place] 3.430.2.7 Hospit a .3.009751 l .8 2022-02-08 2022-02-08 Telephone Ghazal Lynn 1.2.840.1 [id number] [facility] 00:00:00 00:00:[address] 3.430.2.7 Hospit a .3.806003 l .8 2022-02-02 2022-02-02 Outpatient ABHISHEK SOFIAIRENEBALBINANAJMA [facility] D000 [id number] [place] 16:31:00 16:31:00 GREG -[id number] [facility] 2022-01-18 2022-01-18 Telephone Lalit, 1.2.840.1 [id number] [facility] 00:00:00 00:00:[address] [place] 3.430.2.7 Hosp maryann .3.047320 l .8 2022-01-18 2022-01-18 Telephone Lalit, 1.2.840.1 [id number] [facility] 00:00:00 00:00:[address] [place] 3.430.2.7 Hosp maryann .3.974526 l .8 2021-09-24 2021-09-24 Outpatient ALEXYYENNY CRUZ LAROSALIO 958 [place] 00:00:00 00:00:00 HN 0728 [facility] 2020-06-20 2020-06-20 Outpatient JACQUELYNGHAZAL [facility] [id number] [place] 00:00:00 00:00:[address] 2020-04-21 2020-04-21 Outpatient ADRIANNA Jael [facility] [id number] [place] 09:15:00 09:15:00 Yoseph -[id number] [facility] 2019-12-28 2019-12-28 [id number] [place] 00:00:00 00:00:00 [address]ITO [address] 2019-11-09 2019-11-09 [facility] [id number] [place] 00:00:00 00:00:00 VERITO 299 Method i 2019-10-29 2019-10-29 Outpatient KAHLIL, [facility] [id number] [place] 00:00:00 00:00:00 VERITO [address] 2019-10-16 2019-10-16 Outpatient KAHLIL, [facility] [id number] [place] 00:00:00 00:00:00 VERITO 637 Method i 2019-10-08 2019-10-08 Outpatient KAHLIL, [facility] [id number] [place] 00:00:00 00:00:00 VERITO 921 Method i 2019-09-18 2019-09-18 [facility] [id number] [place] 02:22:00 02:22:00 0721 [facility] Group 2016-04-17 2016-04-17 Emergency ER UGORJI, [facility] [id number] [place] 02:28:00 08:28:00 CLEMENT -[id number] [facility] 2014-05-14 2014-05-14 Emergency ER UGORJI, [facility] [id number] [place] 01:10:00 11:55:00 CLEMENT -[id number] [facility] 2008-06-03 2008-06-03 Emergency ER BURROWS-CAM [facility] D000 [id number] [place] 21:29:00 23:54:00 BALTAZAR, -[id number] [facility] 2006-05-05 2006-05-05 Emergency ER [facility] D000 [id number] [place] 10:49:00 16:05:00 BALTAZAR, -[id number] [facility] 2006-02-23 2006-02-23 Outpatient NO [facility] [id number] [place] 10:54:00 10:54:00 PHYSICIAN, -[id number] gallo [facility] 2006-01-05 2006-01-05 Outpatient NO [facility] [id number] [place] 13:09:00 13:09:00 PHYSICIAN, -[id number] gallo [facility] 2003-12-11 2003-12-11 Outpatient EL JAEL, [facility] [id number] [place] 10:10:00 10:10:00 [id number] [facility] 2003-12-03 2003-12-03 Outpatient ADRIANNA ELDER [facility] [id number] [place] 12:05:00 12:05:00 [id number] [facility] 2003-12-02 2003-12-02 Outpatient ADRIANNA ELDER [facility] [id number] [place] 13:00:00 13:00:00 [id number] [facility] Results Test Description Test Time Test Comments Results Result Comments Source Miscellaneous referral test 2022-10-06 21:51:00 Test Item Value Reference Range Interpretation Comme nts Mis test name (test code CDS1 = 2566) Mis test result (test SEE COMMENT Repor t Status: FINAL code = 1730) =COMPOSITE LAMINATOR Demyelinating Disease Eval, S ==COMPOSITE LAMINATOR Demyelinating Disease Interp No infor mative autoantibodies were detected in thi s evaluation. A negative result does not preclude a diagnosis of an inflammatory CN S demyelinating disorder. ............... ............................. ............... .NMO/AQP4 FACS, S Negative Reference Value : Negative ............... ............................. ............... .MOG FACS, S Negative Reference Value : Negative - Laboratory Notes:This test was developed a nd its performancechar acteristics determined by [facility] in a mannerconsistent with CLIA requirements. T his test has not beencleared or approved by the U.S. Food and DrugAdministrat ion. reported 10/06/2022 == Performing [address] [address] [facility] referral [id number] 21:51:00 Test Item Value Reference Range Interpretation Comments [facility] test CDS1 name (test code = 2566) [facility] test SEE COMMENT Report Status: FINAL result (test code = 1730) CN S Demyelinating Disease Eval, S C NS Demyelinatin g Disease Interp No informative autoantibodies were detected i n this evaluation. A n egative result does not preclu de a diagnosis of an inflammat ory COMPOSITE LAMINATOR demyelinating d isorder. ............... ................ ............... ..............NM O/AQP4 FACS, S Negative Reference Value : Negative ............... ................ ............... ..............MO G FACS, S Nega tive Reference Value: Negative Laboratory Note s:This test was developed and i ts performancechar acteristics determined by [facility] in a mannerconsisten t with CLIA requirements. T his test has not beencleared or approved by the U.S. Food and DrugAdministrat ion. reported 10/06/2022 Performing Site [place] [address] 7625 [facility] [id number] 04:16:00 Test Item Value Reference Range Interpretation Comments POC glucose (test 97 mg/dL 65-99 Precision Lens Technician N efrain: Purvi code = 79561-5) NwifeDevice ID: [id number] able: [facility] Notified HERMAN Gambino [facility] [id number] 04:16:00 Test Item Value Reference Range Interpretation Comments POC glucose (test 97 mg/dL 65-99 Precision Lens Technician N efrain: Purvi code = 78303-1) NwifeDevice ID: [id number] able: [facility] Notified HERMAN Gambino [facility] Institute[facility], total, immunoassay (for adult males)2022-09-08 08:34:00 Test Item Value Reference Interpretation Comments Range Testosterone, total, 1219 ng/dL 250-827 H NO PAM ECTION DATE adult male (test RECEIVED. W E HAVE code = 2986-8) USEDTHE DATE THE SPECIMEN WAS RECEIVED BY THISLABORATORY THE COLLECTION DATE. IF THISIS INCORRECT, PLEA SE CONTACT CLIENT SERVICES.PHONE NUMBER: [phone] RAC (test code = Performing RAC) Organization Information: Site ID: DESTINY Name: [facility] Address: [address] [place] [phone] Director: [facility] Lab Interpretation Abnormal (test code = 66259-0) [facility], [facility], immuno[facility] (for adult males)2022-09-08 08:34:00 Test Item Value Reference Interpretation Comments Range Testosterone, total, 1219 ng/dL 250-827 H NO PAM ECTION DATE adult male (test RECEIVED. W E HAVE code = 2986-8) USEDTHE DATE THE SPECIMEN WAS RECEIVED BY THISLABORATORY THE COLLECTION DATE. IF THISIS INCORRECT, PLEA SE CONTACT CLIENT SERVICES.PHONE NUMBER: [phone] RAC (test code = Performing RAC) Organization Information: Site ID: DESTINY Name: [facility] Address: [address] [place] [id number] Director: [employer] Lab Interpretation Abnormal (test code = 06676-1) [facility] urinalysis [id number] 20:59:28 Test Item Value Reference Range Interpretation Comments Color urine, POC (test Yellow code = 9735548) Clarity urine, POC (test Clear code = 1895800) Glucose urine, POC (test Negative Negative code = 9829678) Bilirubin urine, POC Negative Negative (test code = 4503323) Ketones urine, POC (test 1+ Negative A code = 2514-8) Specific gravity urine, >/=1.030 1.005-1.030 POC (test code = 5811-5) Blood urine, POC (test Small Negative A code = 5995023) pH urine, POC (test code 5.5 See_Comment [A utomated message] = 5803-2) The system Cinnamon generated this result transmitted ref erence range: 5.0, 5.5 , 6.0, 6.5, 7.0, 7.5, 8.0, 8.5. The refere nce range was not u sed to interpret this result as normal/abnor mal. Protein urine, POC (test Negative Negative code = 65932-8) Urobilinogen urine, POC <2.0 See_Comment [Au tomated message] (test code = 28372-6) The sy stem which generated this result transmitted ref erence range: <=2.0. T he reference range was not used to int erpret this result as normal/abnormal . Nitrite urine, POC (test Negative Negative code = 5802-4) Leukocyte esterase Negative Negative urine, POC (test code = 1422598) Lab Interpretation (test Abnormal code = 61372-1) [facility] urinalysis [id number] 20:59:28 Test Item Value Reference Range Interpretation Comments Color urine, POC (test Yellow code = 6934867) Clarity urine, POC (test Clear code = 3961572) Glucose urine, POC (test Negative Negative code = 6666480) Bilirubin urine, POC Negative Negative (test code = 5807468) Ketones urine, POC (test 1+ Negative A code = 2514-8) Specific gravity urine, >/=1.030 1.005-1.030 POC (test code = 5811-5) Blood urine, POC (test Small Negative A code = 9766883) pH urine, POC (test code 5.5 See_Comment [A utomated message] = 5803-2) The system Bookya[employer] h generated this result transmitted ref erence range: 5.0, 5.5 , 6.0, 6.5, 7.0, 7.5, 8.0, 8.5. The refere nce range was not u sed to interpret this result as normal/abnor mal. Protein urine, POC (test Negative Negative code = 67376-9) Urobilinogen urine, POC <2.0 See_Comment [Au tomated message] (test code = 26521-8) The sy stem which generated this result transmitted ref erence range: <=2.0. T he reference range was not used to int erpret this result as normal/abnormal . Nitrite urine, POC (test Negative Negative code = 5802-4) Leukocyte esterase Negative Negative urine, POC (test code = 8268539) Lab Interpretation (test Abnormal code = 58879-3) [facility] [id number] 04:20:00 Test Item Value Reference Range Interpretation Comments Urine culture Mixed yohannes Specimen isolate (test >10-5 col/cc InformationSpe cimen code = 57772-8) Source: [facility] Site: Clean cat [facility] [id number] 04:20:00 Test Item Value Reference Range Interpretation Comments Urine culture Mixed yohannes Specimen isolate (test >10-5 col/cc InformationSpe cimen code = 62477-8) [facility] [address]2023-05-19 02:59:32 Test Item Value Reference Range Interpretation Comments Ventricular rate (test 71 code = 253) Atrial rate (test code 71 = 255) SD interval (test code 176 = 266) QRSD interval (test 82 code = 260) QT interval (test code 376 = 264) QTC interval (test code 408 = 265) P axis 1 (test code = 33 267) QRS axis 1 (test code = 49 268) T wave axis (test code 32 = 270) EKG impression (test Normal sinus code = 273) rhythm-Normal ECG-In automated comparison with ECG of 18-MAY-2010 18:09,-No significant change was found- [address]2023-05-19 02:59:32 Test Item Value Reference Range Interpretation Comments Ventricular rate (test 71 code = 253) Atrial rate (test code 71 = 255) SD interval (test code 176 = 266) QRSD interval (test 82 code = 260) QT interval (test code 376 = 264) QTC interval (test code 408 = 265) P axis 1 (test code = 33 267) QRS axis 1 (test code = 49 268) T wave axis (test code 32 = 270) EKG impression (test Normal sinus code = 273) rhythm-Normal ECG-In automated comparison with ECG of 18-MAY-2010 18:09,-No significant change was found- [facility] BLADDER SCAN/[id number] 21:08:31 Test Item Value Reference Range Interpretation Comments Urine volume (test code = 6354) 0 [facility]/[id number] 21:08:31 Test Item Value Reference Range Interpretation Comments Urine volume (test code = 6354) 0 [id number] 00:15:00 Test Item Value Reference Range Interpretation Comments COLOR (test code = COLU) YELLOW YELLOW CLARITY (test code = CLA) CLOUDY CLEAR A GLUCOSE UR (test code = UA NEGATIVE NEGATIVE GLUCOSE) BILI UR (test code = BILE) NEGATIVE NEGATIVE KETONES UR (test code = MINA) NEGATIVE NEGATIVE SP GRAVITY (test code = SPGR) 1.032 1.005-1.030 H PH UR (test code = PH) 5.0 4.5-8.0 PROTEIN UR (test code = PU) NEGATIVE NEGATIVE UROBIL UR (test code = UROQ) 1.0 EU/dL 0.2-1.0 NITRITE UR (test code = NITRITE) NEGATIVE NEGATIVE BLOOD UR (test code = UA BLOOD) NEGATIVE NEGATIVE LEUK ES UR (test code = LEUK) TRACE NEGATIVE A WBC UR (test code = UWBC) 3 /HPF 0-3 RBC UR (test code = URBC) 1 /HPF 0-2 EPITH UR (test code = UEPC) FEW /LPF NONE A BACTERIA UR (test code = UBACT) MANY /HPF NONE A CAST UR (test code = CAST) /LPF NONE CRYSTAL UR (test code = CRYU) NONE / LPF NONE MUCUS UR (test code = MUC) FEW / HPF NONE A AMORPH UR (test code = MADY) FEW / HPF NONE A TRICH UR (test code = UTRICH) /HPF NONE YEAST UR (test code = UY) /HPF NONE SPERM UR (test code = USPERM) /HPF NONE XR CHEST 1 VIEW [id number] 22:50:07 [facility]ENTER[facility]CO [facility]ANE : 1985 Sex: MCHEST 1 VIEWCLIN ICAL INFORMATION: Chest painCOMPARISON: NoneFINDINGS:The lungs are slightly underexpanded but clear.No airspace consolidation is seen. No pneumothorax or pleural effusion is present. The cardiac silhouette is normal in size. The bones are grossly intact.IMPRESSION:No acute cardiopulmonary finding.LOCATION: [id number] signed by: Ad Mcdaniel MD 05/24/2022 10:50 PM CDT -PsJ (RAPID ANTIGEN)2022-05-24 22:31:00 Test Item Value Reference Range Interpretation Comments SARS-CoV (ANTIGEN) NEGATIVE NEGATIVE (test code = COVAG) COVID AG (test This test has been code = COVAGC) marketed under the FDA Emergency Use Authorization (EUA) to meet challenges of the COVID-19 pandemic. The validation standards normally enforced by the FDA and the [employer] of the [place] [employer] (CAP) are more stringent than those required for this test. Therefore, the result should be interpreted with caution and close attention to other clinical and epidemiological data
[2022-11-10 12:39] LABS: Absolute Lymphocytes (CBC) 1.4 K/uL (0.7-4.9); Hematocrit 44.5 % (39.6-49.0); MCV 80.8 fL (80-100); MPV 7.5 fL (7.6-11.3); Platelets 186 thou/uL (152-406); RBC Red Blood Cell Count 5.52 M/uL (4.33-5.43)
--- NOTE | 2022-11-10 12:56 | RAD REPORT ---
EXAM DESCRIPTION: Dimitris Single View11/10/2022 12:46 pm CLINICAL HISTORY: ams COMPARISON: 07/21/2022 TECHNIQUE: Portable AP view of the chest. FINDINGS: Decreased inspiratory effort. The lungs are clear. No pneumothorax or effusion. Moderate cardiomegaly. Mediastinal contours are unremarkable. IMPRESSION: No acute pulmonary process. Moderate cardiomegaly.
[2022-11-10 13:01] LABS: ALT/SGPT 34 U/L (16-61); AST/SGOT 13 U/L (15-37); Albumin 3.9 g/dL (3.4-5.0); Alkaline Phosphatase 69 U/L (45-117); BUN Blood Urea Nitrogen 12 mg/dL (7-18); Bicarbonate 23 mEq/L (21-32); Bilirubin Direct < 0.1 mg/dL (0-0.2); Bilirubin Indirect, Calculated ND mg/dL (0.2-0.8); Bilirubin Total 0.2 mg/dL (0.2-1.0); Glomerular Filtration Rate 116 ml/min (=/>90); Glucose Level 118 mg/dL (74-106); Magnesium 1.8 mg/dL (1.6-2.4); NT PRO-BNP 19 pg/mL (<125); Potassium 3.6 mEq/L (3.5-5.1); Protein, Total 7.4 g/dL (6.4-8.2); Sodium Level 139 mEq/L (136-145); Troponin High Sensitivity 4.9 pg/mL (<58.9)
[2022-11-10 13:17] LABS: Specific Gravity 1.015 (1.005-1.030); Urine Bacteria <20 /HPF (<20); Urine Bilirubin 1+ (Negative); Urine Blood Negative (Negative); Urine Clarity Clear (Clear); Urine Color Dark-Brown (Yellow); Urine Glucose NEGATIVE (Negative); Urine Protein TRACE (Negative); Urine RBC <5 /HPF (None Seen); Urine Urobilinogen 2+ (Normal)
--- NOTE | 2022-11-10 13:20 | RAD REPORT ---
EXAM DESCRIPTION: CT - Head Brain Wo Cont - 11/10/2022 12:42 pm CLINICAL HISTORY: ams COMPARISON: Head Brain W/Wo Con dated 07/21/2022 TECHNIQUE: Noncontrast head CT images were obtained without IV contrast. Multiplanar reformats were generated and reviewed. All CT scans are performed using dose optimization technique as appropriate and may include automated exposure control or mA/KV adjustment according to patient size. FINDINGS: No intracranial hemorrhage, mass, or edema. Midline structures are unremarkable. Normal ventricular caliber for age. Hi-white matter differentiation is preserved, without evidence of acute infarct. No abnormal extra- axial fluid collections. Mastoid air cells and visualized portions of the paranasal sinuses are clear. No acute bony findings. IMPRESSION: No evidence of an acute intracranial process.
--- NOTE | 2022-11-10 13:37 | RAD REPORT ---
EXAM DESCRIPTION: CT - Chest For Pe Angio - 11/10/2022 12:46 pm CLINICAL HISTORY: hypoxia COMPARISON: Chest For Pe Angio dated 07/21/2022 TECHNIQUE: Thin axial CT images of the chest were obtained following administration of 100 mL Isovue 370 IV contrast. Multiplanar reconstructions, and maximum intensity projection reconstructions were generated and reviewed. Exam utilizes a protocol for optimal evaluation of pulmonary arterial tree. All CT scans are performed using dose optimization technique as appropriate and may include automated exposure control or mA/KV adjustment according to patient size. FINDINGS: Pulmonary arteries are normal. No emboli or other suspicious finding. No acute or signific ant aorta findings. No mass or infiltrate in the lung parenchyma. Geographic mild ground-glass opacities are favored to r elate to decreased inspiratory effort. No pleural thickening or pleural effusion. No pneumothorax. No abnormal mediastinal or hilar masses or lymphadenopathy seen. No chest wall mass or abnormal axill iary lymphadenopathy. IMPRESSION: No evidence of acute central pulmonary emboli. No other acute pulmonary process.
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
[2022-11-10] MEDS ORDERED: ACETAMINOPHEN 500 MG TAB ONE (14:34)
[2022-11-10 14:45] LABS: Arterial Blood Carboxyhemoglob 0.6 % (0-1.5); Blood Gas Oxyhemoglobin 91.2 % (94-97); Blood O2 Saturation 95.5 % (92-98.5)
[2022-11-10] MEDS ORDERED: SUMATRIPTAN SUCCI 50 MG TAB PO PRN (14:51)
[2022-11-10] MEDS ORDERED: ACETAMIN/CAFFEINE/BUTALB TAB PO PRN (14:51)
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
[2022-11-10 17:13] VITALS: BMI 28.6
[2022-11-10] MEDS: ACETAMINOPHEN 500 MG TAB PO SCH (18:00)
[2022-11-10] MEDS ORDERED: levETIRAcetam 1,000 MG in NA CHLORIDE 0.9% 100 ML IV ONE (19:40)
[2022-11-10] MEDS ORDERED: LORazepam 2 MG/ML VIAL ONE (19:49)
[2022-11-10] MEDS ORDERED: LEVETIRACETAM 500 MG/5 ML VIAL IV ONE (19:53)
[2022-11-10] MEDS ORDERED: NA CHLORIDE 0.9% 100 ML ONE (19:54)
[2022-11-10] MEDS ORDERED: LORazepam 2 MG/ML VIAL IV PRN (19:58)
[2022-11-10] MEDS: levETIRAcetam 500 MG TAB PO SCH (20:49)
[2022-11-10] MEDS: TOPIRAMATE 25 MG TAB PO SCH (20:53)
[2022-11-10] MEDS: HYDROCODONE/APAP 7.5/325 MG TAB PO PRN (20:53)
[2022-11-10] MEDS: DIVALPROEX DR 500MG TAB PO SCH (20:53)
[2022-11-10] MEDS ORDERED: HOME MED 1 EA UNK (Topiramate [Topiramate] 50 MG Tablet) PO SCH (21:00)
[2022-11-10] MEDS ORDERED: HOME MED [LATANOPROST 0.005% 2.5ML OPTH] OPTH SCH (21:00)
[2022-11-10] MEDS ORDERED: LATANOPROST 0.005% 2.5ML OPTH OPTH SCH (21:00)
[2022-11-11] MEDS: ACETAMINOPHEN 500 MG TAB PO SCH ×3 (00:01→12:00)
[2022-11-11] MEDS: ONDANSETRON 4 MG/2 ML VIAL IV PRN ×3 (03:10→12:55)
[2022-11-11] MEDS: HYDROCODONE/APAP 7.5/325 MG TAB PO PRN (04:33)
[2022-11-11] MEDS: levETIRAcetam 500 MG TAB PO SCH (08:48)
[2022-11-11] MEDS: TOPIRAMATE 25 MG TAB PO SCH (08:58)
[2022-11-11] MEDS ORDERED: CYCLOPENTOLATE 1% OPTH SCH (09:00)
[2022-11-11] MEDS ORDERED: HOME MED 1 EA UNK (Famotidine [Famotidine] 40 MG Tablet) PO SCH (09:00)
[2022-11-11] MEDS ORDERED: DONEPEZIL HCL 5 MG TAB PO SCH (09:00)
[2022-11-11] MEDS ORDERED: CYCLOPENTOLATE 1% OPTH 2 ML OPTH SCH (09:00)
[2022-11-11] MEDS ORDERED: DIAZEPAM 5 MG TABLET PO SCH (09:00)
[2022-11-11] MEDS ORDERED: FAMOTIDINE 20 MG TAB PO SCH (09:00)
[2022-11-11] MEDS ORDERED: OPTH OPTH SCH (09:00)
[2022-11-11] MEDS ORDERED: HOME MED 1 EA UNK (Dorzolamide Hcl/Pf [Dorzolamide 2% Eye Drop] 10 ML Drops) OP SCH (09:00)
[2022-11-11 09:17] VITALS: O2SAT 98
[2022-11-11 09:27] LABS: Absolute Lymphocytes (CBC) 1.6 K/uL (0.7-4.9); Hematocrit 42.6 % (39.6-49.0); Lymphocytes % 19.2 % (15.3-44.8); MCV 81.3 fL (80-100); MPV 7.6 fL (7.6-11.3); Platelets 192 thou/uL (152-406); RBC Red Blood Cell Count 5.25 M/uL (4.33-5.43)
[2022-11-11] MEDS: DIVALPROEX DR 500MG TAB PO SCH (09:32)
[2022-11-11 09:38] LABS: Albumin 3.9 g/dL (3.4-5.0); Bilirubin Total 0.5 mg/dL (0.2-1.0); Magnesium 1.8 mg/dL (1.6-2.4); Potassium 3.4 mEq/L (3.5-5.1); Protein, Total 7.4 g/dL (6.4-8.2)
[2022-11-11] MEDS ORDERED: HYDROCODONE/APAP 7.5/325 MG TAB PO PRN (11:08)
--- NOTE | 2022-11-11 12:11 | P.PN ---
Date of Service: 11/11/22 Patient requested a new physician when his attending was rounding this morning Patient was admitted yesterday after syncopal event overnight had seizure activity and was transferred to the ICU for closer monitoring and Neurology was consulted He reportedly was doing better this morning I briefly informed the patient of my other 22 patients that I was responsible for and will evaluate him later in the day, after seeing my 22 patients. Otherwise would recommend continuing under his attending's care /service. Patient stated he was doing ok this morning, expressed understanding, and ok with waiting. Throughout the day, patient reportedly became more impatient and ultimately decided to leave against medical advice. Patient left before I was able to formally evaluate/assess him. Our interaction today was limited to the above brief discussion. Please refer to H&P from yesterday, 11/10 for further clinical information.
--- NOTE | 2022-11-11 13:03 | EKG ---
Test Date: 2022-11-10 Test Time: 12:28:22 Wax Cutter: MB MEASUREMENT RESULTS: Intervals: Rate: 82 [place]: 162 QRSD: 84 QT: 356 QTc: 415 [place]: P: 18 [place]: 162 QRS: 65 T: 10 INTERPRETIVE STATEMENTS: Normal sinus rhythm Normal ECG Compared to ECG 07/22/2022 02:28:22 Sinus tachycardia no longer present Right-axis deviation no longer present ST (T wave) deviation no longer present Possible ischemia no longer present Electronically Signed On 11-11-22 13:01:13 CDT by Tarik Pop
[2022-11-11 16:16] VITALS: BP 123/75
[2022-11-11 17:04] VITALS: TEMP 98.3
[2022-11-11] MEDS ORDERED: HOME MED 1 EA UNK (Brimonidine Tartrate [Lumify] 2.5 ML Drops) OP SCH (21:00)
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
== END 2022-11-11 16:10 | disposition left against medical advice (07) ==
LOC: ER 12:07 → ERHOLD 14:48 → 4TH 15:50 → 3RD-ICU 11-11 02:49
PROVIDERS: ADMIT Internal Medicine; ATTEND Hospitalist
DX: R55 Syncope and collapse (principal); R56.9 Unspecified convulsions; R09.02 Hypoxemia; G89.29 Other chronic pain; G47.33 Obstructive sleep apnea (adult) (pediatric); G47.419 Narcolepsy without cataplexy; M54.9 Dorsalgia, unspecified; H54.7 Unspecified visual loss; F41.9 Anxiety disorder, unspecified; I10 Essential (primary) hypertension; Z53.29 Procedure and treatment not carried out because of patient's decision for other reasons
CPT/HCPCS: 93005; 85025 ×2; 81001; 80048; 36415; 83735 ×2; 80076; 84484; 80053; 83880; 70450; 71275; 71045; 82805 ×3; 94760 ×2; 99285; 94660; Q9967; J1953 ×2; J2405 ×2; G0378 ×3

== ENCOUNTER 2024-06-05 09:40 | Day surgery (SDC) | payer OTHER ==
[2024-05-23 14:16] LABS: Absolute Eosinophils 0.1 K/uL (0-0.5); Absolute Lymphocytes (CBC) 1.4 K/uL (0.7-4.9); Absolute Monocytes 0.3 K/uL (0.1-1.3); Absolute Neutrophil 3.2 K/uL (1.8-8.0); Basophils % 0.4 % (0-1.3); Eosinophils % 2.1 % (0-4.4); Hematocrit 43.7 % (39.6-49.0); Hemoglobin 15.1 g/dL (13.6-17.9); Lymphocytes % 28.2 % (15.3-44.8); MCH 29.9 pg (27.0-35.0); MCHC 34.5 g/dL (32.0-36.0); MCV 86.5 fL (80-100); Monocytes % 6.6 % (3.3-12.3); Neutrophils % 62.7 % (41.7-73.7); Platelets 204 thou/uL (152-406); RBC Red Blood Cell Count 5.05 M/uL (4.33-5.43); Red Cell Distribution Width 13.2 % (12.1-15.2)
--- NOTE | 2024-05-23 14:18 | RAD REPORT ---
Procedure: Chest Pa And Lat (2 Views) HISTORY: Preop for renal surgery COMPARISON: 2022 FINDINGS: The lungs appear clear of acute infiltrate. No significant pleural effusion noted. The heart is normal size.. Loop recorder in place IMPRESSION: No acute abnormality is displayed.
[2024-05-23 14:22] LABS: Protime INR 1.06
[2024-05-23 14:26] LABS: Anion Gap 9.4 mEq/L (5.0-15.0); Potassium 3.4 mEq/L (3.5-5.1)
--- NOTE | 2024-05-28 11:37 | EKG ---
Test Date: 2024-05-23 Test Time: 13:29:04 Scrum Master: CHRISSY MEASUREMENT RESULTS: Intervals: Rate: 76 [place]: 182 QRSD: 104 QT: 358 QTc: 402 [place]: P: 37 [place]: 182 QRS: 56 T: 19 INTERPRETIVE STATEMENTS: Normal sinus rhythm Nonspecific T wave abnormality Abnormal ECG Compared to ECG 11/10/2022 12:28:22 T-wave abnormality now present Electronically Signed On 05-28-24 11:24:58 CDT by Iban Olson
[2024-06-05] MEDS: Ringers Lactate 1,000 ML IV ONE (10:15)
[2024-06-05 11:03] VITALS: BP 145/86; TEMP 98.5; O2SAT 100
[2024-06-05] MEDS ORDERED: KETOROLAC 30 MG/ML INJ ONE (11:23)
[2024-06-05] MEDS ORDERED: dexAMETHasone 10 MG/ML VIAL ONE (11:23)
[2024-06-05] MEDS ORDERED: ONDANSETRON 4 MG/2 ML VIAL ONE (11:23)
[2024-06-05] MEDS ORDERED: MIDAZOLAM HCL 2 MG/2 ML INJ ONE (11:23)
[2024-06-05] MEDS ORDERED: propofoL 200 MG/20 ML VIAL IV ONE (11:23)
[2024-06-05] MEDS ORDERED: FENTANYL CITR 100 MCG/2 ML ONE (11:23)
[2024-06-05] MEDS ORDERED: ROCURONIUM 50 MG/5 ML VIAL IV ONE (11:24)
[2024-06-05] MEDS ORDERED: LIDOCAINE 1% MPF 5 ML VIAL ONE (11:24)
[2024-06-05 12:08] LABS: Specific Gravity 1.005 (1.005-1.030); Urine Bacteria 20-50 /HPF (<20); Urine Bilirubin NEGATIVE (Negative); Urine Blood 2+ (Negative); Urine Clarity Extremely Turbid (Clear); Urine Color Colorless (Yellow); Urine Crystals Unidentified Few /HPF (None Seen); Urine Culture Reflex Order REFLEXED; Urine Glucose NEGATIVE (Negative); Urine Ketones NEGATIVE (Negative); Urine Microscopic Reflex YN ORDER UMIC; Urine Nitrite NEGATIVE (Negative); Urine Protein NEGATIVE (Negative); Urine Urobilinogen Normal (Normal); Urine WBC Clump Few /HPF (None Seen); Urine pH 6.5 (5.0-7.0)
== END 2024-06-05 13:55 | disposition home or self-care (01) ==
LOC: OR 09:40
PROVIDERS: ATTEND Urology
DX: N02.9 Recurrent and persistent hematuria with unspecified morphologic changes (principal); Z53.09 Procedure and treatment not carried out because of other contraindication; R10.31 Right lower quadrant pain
CPT/HCPCS: 93005; 87088 ×2; 85025; 81001; 87086 ×2; 80048; 36415; 85610; 71046; J7120; J1100; J2003; J2250; J2405; J2704; J3010